=== PATIENT | female | born 1965 | race Caucasian/White ===

== ENCOUNTER → 2017-10-28 | Outpatient (CLI) | payer BC ==
[~2017-10-28] MED LIST: CITA10TA8 PO; FEXO1TAB45 PO; METO25TA3 PO; MULTTAB58 PO; OMEP40CA PO
[2017-10-28 10:29] LABS: HEMOGLOBIN A1C 5.3 % (4.5-5.6)
[2017-10-28 10:46] LABS: ALBUMIN 3.7 gm/dl (3.4-5.0); ALT/SGPT 32 U/L (12-78); AST/SGOT 21 U/L (15-37); BLOOD UREA NITROGEN 11 mg/dl (7-18); CARBON DIOXIDE 30 mmol/L (21-32); CREATININE 0.66 mg/dl (0.60-1.20); GLUCOSE 89 mg/dl (70-99); POTASSIUM 3.6 mmol/L (3.5-5.1); SODIUM 139 mmol/L (136-145)
[2017-10-28 10:47] LABS: ALKALINE PHOSPHATASE 88 U/L (45-117); CHOLESTEROL 225 mg/dl (0-200); LDL CHOLESTEROL CALCULATED 132 mg/dl; TOTAL PROTEIN 7.3 gm/dl (6.4-8.2)
== END | disposition home or self-care (01) ==
LOC: C.LAB 09:08
PROVIDERS: ATTEND Nurse Practitioner Family
DX: Z13.220 Encounter for screening for lipoid disorders (principal); I10 Essential (primary) hypertension; E16.2 Hypoglycemia, unspecified

== ENCOUNTER 2018-08-16 13:44 | Observation (INO) ==
[2018-08-16] MEDS ORDERED: LORazepam 1 MG TAB PO STA (14:28)
[2018-08-16 15:07] LABS: Basophils # (auto) 0.02 K/uL (0-0.2); Basophils % (auto) 0.2 %; Hematocrit (blood only) 43.9 % (37-47); Immature Granulocytes # (auto) 0.04 K/uL (0.00-0.02); Immature Granulocytes % (auto) 0.4 %; Lymphocytes # (auto) 2.02 K/uL (1.2-3.4); Lymphocytes % (auto) 19.3 %; Mean Corpuscular Hgb Conc 34.2 g/dL (32-36); Mean Corpuscular Volume 99.3 fL (80-100); Mean Platelet Volume 9.5 fL (7.4-10.4); Monocytes # (auto) 0.91 K/uL (0.11-0.59); Monocytes % (auto) 8.7 %; Neutrophils # (auto) 7.46 K/uL (1.4-6.5); Neutrophils % (auto) 71.4 %; Platelet Count 220 K/uL (130-400); RDW Coefficient of Variation 12.9 % (11.5-14.5); RDW Standard Deviation 46.8 fL (36.4-46.3); Red Blood Count 4.42 M/uL (4.2-5.4); White Blood Count 10.45 K/uL (4.8-10.8)
[2018-08-16 15:26] LABS: Albumin Level 3.9 gm/dl (3.4-5.0); BUN Creatinine Ratio 4.3 (10-20); Calcium 9.3 mg/dl (8.5-10.1); Creatinine Clr Calc Pharmacy 25.9 ml/min; Est GFR (African American) 27.5; Est GFR (Non-African American) 23.7; Potassium 2.9 mmol/L (3.5-5.1)
[2018-08-16] MEDS ORDERED: SODIUM CHLORIDE 0.9% 1000ML 1,000 ML IV ONE ×2 (15:31→15:32)
--- NOTE | 2018-08-16 15:31 | XRay Report ---
XR hip RT 2-3V w pelvis CLINICAL HISTORY: s/p fall. Right hip pain. COMPARISON STUDY: None. FINDINGS: No fracture or dislocation within the pelvis or hips. The sacrum is intact. Soft tissues ar e unremarkable. Cartilage spaces are maintained for age. IMPRESSION: No fracture or dislocation within the pelvis or hips. Electronically signed by: uJan A Dickerson M.D. 08/16/2018 3:30 PM
[2018-08-16] MEDS ORDERED: POTASSIUM CHLORIDE 20 MEQ/15 ML UDC PO STA (15:32)
[2018-08-16 15:37] LABS: Albumin Globulin Ratio 0.9 (0.9-2); Bilirubin,Total 0.2 mg/dl (0.1-1); Globulin 4.2 gm/dl (2.5-4.0); Total Protein 8.1 gm/dl (6.4-8.2)
[2018-08-16 15:44] LABS: Magnesium 2.4 mg/dl (1.8-2.4)
[2018-08-16 15:47] LABS: Acetaminophen < 2 ug/ml (10-30); Salicylate 2.2 mg/dl (2.8-20)
[2018-08-16 16:37] LABS: Appearance Urine Turbid (Clear); Bacteria Urine Automated 4+ (Negative); Bilirubin Urine Negative (Negative); Color Urine Yellow; Epithelial Cell Urine Auto >30 /lpf (0-5); Glucose Urine UA Negative (Negative); Ketones Urine Negative (Negative); Leukocyte Esterase Urine 3+ (Negative); Nitrite Urine Positive (Negative); Protein Urine 1+ (Negative); Specific Gravity Urine 1.011 (1.000-1.030); Urobilinogen Urine Negative (Negative); WBC Urine Automated >30 /hpf (0-5); pH Urine 6.5 (4.5-7.5)
[2018-08-16] MEDS ORDERED: FOLIC ACID 1 MG in SYRINGE 9.8 ML IV STA (17:07)
[2018-08-16] MEDS ORDERED: THIAMINE HCL 100 MG TAB PO STA (17:07)
[2018-08-16] MEDS ORDERED: MULTIVITAMIN TAB PO STA (17:07)
[2018-08-16 17:09] LABS: Amphetamines+Metham, Urine Neg (Neg); Barbiturates, Urine Neg (Neg); Benzodiazepine, Urine Neg (Neg); Cocaine, Urine Neg (Neg); MDMA (Ecstacy), Urine Neg (Neg); Methadone, Urine Neg (Neg); Opiate, Urine Neg (Neg); Phencyclidine, Urine Neg (Neg)
[2018-08-16] MEDS ORDERED: ONDANSETRON INJ 2 MG/ML 2 ML VIAL ONE (17:47)
[2018-08-16] MEDS ORDERED: cephALEXin 250 MG CAP PO ONE (18:19)
[2018-08-16] MEDS ORDERED: NICOTINE 14 MG/24 HR PATCH TD STA (21:13)
[2018-08-16] MEDS ORDERED: LORazepam 1 MG TAB SL STA (21:13)
--- NOTE | 2018-08-16 21:56 | Emergency Department Note ---
Entered by Tom Lawrence acting as a scribe for Uriah Moses MD History of Present Illness General Chief complaint: Mental Health Evaluation Stated complaint: MENTAL HEALTH/ETOH Time Seen by Provider: 08/16/18 14:10 Source: patient and friends History of Present Illness Onset (ago): unknown (reportedly hasn't eaten or drank for past 3-4 days) Location: head (psychiatric) Pain Consistency: + other (worsening) Quality: + other ("feeling like a failure") Associated symptoms: no nausea/vomiting and no other (pain) The patient is a 53 year old white female with a history of alcoholism who presents to the Emergency Room with complaints of feeling like a failure. The psychiatric case repairer states that the patient has reportedly stayed in bed for the past 6 days, and her friend checked her today and felt she should be brought to the ER. The patients friend at bedside states that the patient last ate or drank 3 to 4 days ago. She states that she currently feels anxious and regularly takes anxiety medication. She notes that she acutely feels like a failure, worsening and not getting better. She denies pain, nausea, vomiting, SI, HI, or hallucinations. She states that she does not use tobacco and has not drunk alcohol. When asked if she has used any drugs she states I cant even tell you. Home Medications Home Medications Medication Instructions Recorded Confirmed Type bupropion HCl 150 mg PO DAILY 08/16/18 08/16/18 History cephalexin [Keflex] 250 mg PO BID 5 Days #9 cap 08/16/18 Rx cephalexin [Keflex] 500 mg PO BID 5 Days #9 cap 08/16/18 Rx metoprolol tartrate 25 mg PO BID 08/16/18 08/16/18 History omeprazole 40 mg PO DAILY 08/16/18 08/16/18 History Allergies Allergy/AdvReac Type Severity Reaction Status Date / Time No Known Allergies Allergy Verified 02/20/16 20:37 Past Med/Surg History Medical History Alcoholism Family History Other Family history non-contributory Social History Feels Safe at Home: Yes Smoking Status: Current every day smoker Tobacco Type: cigarettes Review of Systems See HPI for pertinent positives & negatives. and A total of 10 systems reviewed and were otherwise negative Physical Exam Vital Signs Vital Signs - 24 hr 08/16/18 13:50 08/16/18 17:06 08/16/18 21:33 Temperature 36.4 C L Temperature Source Oral Sepsis Recent Fever Within 48 Hours No Sepsis New/Unexplained Change in Mental Status No Sepsis Action Taken by Nursing No Action Required Pulse Rate 102 H Pulse Rate [Right Finger] 89 104 H Pulse Rhythm Regular Pulse Rhythm [Right Finger] Regular Pulse Strength [Right Finger] Normal Respiratory Rate 20 20 20 Respiratory Effort / Characteristics Non-Labored Spontaneous Non-Labored Spontaneous Respiratory Depth Normal Normal Respiratory Pattern Regular Regular Blood Pressure 151/81 H Blood Pressure [Right Arm] 146/64 H 133/85 Blood Pressure Mean 104 Blood Pressure Mean [Right Arm] 91 101 Blood Pressure Position [Right Arm] Lying Pulse Oximetry 98 99 97 Oxygen Delivery Method Room Air Room Air Room Air GENERAL: tearful and anxious-appearing EYE EXAM: Normal conjunctiva. PERRL, no anisocoria and EOM's grossly intact w/o pain. OROPHARYNX: No exudate, posterior pharynx is clear, no tonsillar/uvular deviation or swelling. NECK: Supple, no nuchal rigidity, no adenopathy, non-tender. No signs of meningismus. LUNGS: Clear to auscultation bilaterally. Normal chest wall mechanics. HEART: Tachycardic and regular, no MRG. ABDOMEN: Abdomen soft, non-tender, normo-active bowel sounds, no masses, no rebound or guarding. BACK: No CVA TTP. SKIN: No rashes and no bruising. UPPER EXTREMITIES: Upper extremities are grossly normal. LOWER EXTREMITIES: No pitting edema. No calf pain NEURO EXAM: Cranial nerves II-XII grossly intact, normal speech, 5/5 strength in b/l upper and lower extremities, moves all 4 extremities without issue on command PSYCH: No SI, HI or AVH Course 1423: Past medical records reviewed. The patient was evaluated in room A6, and a complete history and physical examination were performed. 1457: The patient fell out of her bed onto the right side and is now reporting hip pain. An x-ray of the hip will be obtained. 2022: I spoke to the patient. She now states that she will talk to Jarrell, the psychiatric case repairer. 2137: Jarrell states that the patient has agreed to possible rehab. 2229: I signed the patient out to Dr. Russell. 2244: I briefly spoke w/ hospitalist ( Dr. Pittman, [facility]ist) given patient's acute change in kidney dysfucntion. Given the improvement, likely related to alcohol abuse and decreased PO intake. If not accepted to rehab, he will admit. 2248: I discussed POC w/ Dr. Russell and psych case repairer, pending acceptance to rehab. Administered Medications Discontinued Medications Cephalexin HCl (Keflex) 500 mg PO NOW ONE Stop: 08/16/18 18:20 Last Admin: 08/16/18 18:33 Dose: 500 mg Sodium Chloride (Nss 1000ml) 1,000 mls @ 999 mls/hr IV .Q1H1M ONE Stop: 08/16/18 16:31 Last Infusion: 08/16/18 17:45 Dose: 0 mls/hr Admin: 08/16/18 16:29 Dose: 999 mls/hr Sodium Chloride (Nss 1000ml) 1,000 mls @ 999 mls/hr IV .Q1H1M ONE Stop: 08/16/18 16:32 Last Infusion: 08/16/18 17:45 Dose: 0 mls/hr Admin: 08/16/18 16:29 Dose: 999 mls/hr Folic Acid 1 mg/ Syringe 10 mls @ 5 mls/min IV ONE STA Stop: 08/16/18 17:08 Last Admin: 08/16/18 17:35 Dose: 5 mls/min Lorazepam (Ativan) 1 mg PO NOW STA Stop: 08/16/18 14:29 Last Admin: 08/16/18 14:38 Dose: 1 mg Lorazepam (Ativan) 1 mg SL NOW STA Stop: 08/16/18 21:14 Last Admin: 08/16/18 21:21 Dose: 1 mg Multivitamins (Multivitamin) 1 tab PO ONE STA Stop: 08/16/18 17:08 Last Admin: 08/16/18 17:35 Dose: 1 tab Ondansetron HCl (Zofran) Confirm Administered Dose 4 mg .ROUTE .STK-MED ONE Stop: 08/16/18 17:48 Last Admin: 08/16/18 17:57 Dose: 4 mg Potassium Chloride (Neida Ciel Elix) 40 meq PO NOW STA Stop: 08/16/18 15:33 Last Admin: 08/16/18 17:35 Dose: 30 meq Thiamine HCl (Vitamin B-1) 100 mg PO ONE STA Stop: 08/16/18 17:08 Last Admin: 08/16/18 17:35 Dose: 100 mg Medical Decision Making Medical Records Attestation: I reviewed the patient's medical records. Home Medications Current Medication List: was personally reviewed by me Laboratory Data Attestation: I reviewed the patient's lab results. Result diagrams: 08/16/18 14:49 08/16/18 22:06 Lab Results 08/16/18 08/16/18 08/16/18 Range/Units 14:49 14:49 14:49 WBC 10.45 (4.8-10.8) K/uL RBC 4.42 (4.2-5.4) M/uL Hgb 15.0 (12.0-16.0) g/dL Hct 43.9 (37-47) % MCV 99.3 (80-100) fL MCH 33.9 (25-34) pg MCHC 34.2 (32-36) g/dL RDW Std Deviation 46.8 H (36.4-46.3) fL RDW Coeff of Ahsan 12.9 (11.5-14.5) % Plt Count 220 (130-400) K/uL MPV 9.5 (7.4-10.4) fL Immature Gran % (Auto) 0.4 % Neut % (Auto) 71.4 % Lymph % (Auto) 19.3 % [place] % (Auto) 8.7 % Eos % (Auto) 0.0 % Baso % (Auto) 0.2 % Immature Gran # (Auto) 0.04 H (0.00-0.02) K/uL Neut # (Auto) 7.46 H (1.4-6.5) K/uL Lymph # (Auto) 2.02 (1.2-3.4) K/uL [place] # (Auto) 0.91 H (0.11-0.59) K/uL Eos # (Auto) 0.00 (0-0.5) K/uL Baso # (Auto) 0.02 (0-0.2) K/uL Sodium 134 L (136-145) mmol/L Potassium 2.9 L (3.5-5.1) mmol/L Chloride 95 L (98-107) mmol/L Carbon Dioxide 30 (21-32) mmol/L Anion Gap 9.0 (3-11) BUN 10 (7-18) mg/dl Creatinine 2.31 H (0.6-1.2) mg/dl Est Cr Clr Drug Dosing 25.9 ml/min Est GFR ( Amer) 27.5 Est GFR (Non-Af Amer) 23.7 BUN/Creatinine Ratio 4.3 L (10-20) Glucose 163 H (70-99) mg/dl Calcium 9.3 (8.5-10.1) mg/dl Magnesium 2.4 (1.8-2.4) mg/dl Total Bilirubin 0.2 (0.1-1) mg/dl AST 61 H (15-37) U/L ALT 51 (12-78) U/L Alkaline Phosphatase 100 (45-117) U/L Total Protein 8.1 (6.4-8.2) gm/dl Albumin 3.9 (3.4-5.0) gm/dl Globulin 4.2 H (2.5-4.0) gm/dl Albumin/Globulin Ratio 0.9 (0.9-2) TSH 0.289 L (0.300-4.500) uIu/ml Urine Color Urine Appearance (Clear) Urine pH (4.5-7.5) Ur Specific [place] (1.000-1.030) Urine Protein (Negative) Urine Glucose (UA) (Negative) Urine Ketones (Negative) Urine Blood (Negative) Urine Nitrite (Negative) Urine Bilirubin (Negative) Urine Urobilinogen (Negative) Ur Leukocyte Esterase (Negative) Urine WBC (Auto) (0-5) /hpf Urine RBC (Auto) (0-4) /hpf U Hyaline Cast (Auto) (0-5) /lpf U Epithel Cells (Auto) (0-5) /lpf Urine Bacteria (Auto) (Negative) Salicylates 2.2 L (2.8-20) mg/dl Urine Opiates Screen (Neg) Ur Methadone, Qual (Neg) Acetaminophen < 2 L (10-30) ug/ml Urine Barbiturates (Neg) Ur Phencyclidine (PCP) (Neg) U Amphetamin/Meth Scrn (Neg) MDMA (Ecstasy) Screen (Neg) U Benzodiazepines Scrn (Neg) Ur Cocaine Metabolite (Neg) U Marijuana (THC) Screen (Neg) Ethyl Alcohol mg/dL (0-3) mg/dl 08/16/18 08/16/18 08/16/18 Range/Units 14:49 16:25 16:25 WBC (4.8-10.8) K/uL RBC (4.2-5.4) M/uL Hgb (12.0-16.0) g/dL Hct (37-47) % MCV (80-100) fL MCH (25-34) pg MCHC (32-36) g/dL RDW Std Deviation (36.4-46.3) fL RDW Coeff of Ahsan (11.5-14.5) % Plt Count (130-400) K/uL MPV (7.4-10.4) fL Immature Gran % (Auto) % Neut % (Auto) % Lymph % (Auto) % [place] % (Auto) % Eos % (Auto) % Baso % (Auto) % Immature Gran # (Auto) (0.00-0.02) K/uL Neut # (Auto) (1.4-6.5) K/uL Lymph # (Auto) (1.2-3.4) K/uL [place] # (Auto) (0.11-0.59) K/uL Eos # (Auto) (0-0.5) K/uL Baso # (Auto) (0-0.2) K/uL Sodium (136-145) mmol/L Potassium (3.5-5.1) mmol/L Chloride (98-107) mmol/L Carbon Dioxide (21-32) mmol/L Anion Gap (3-11) BUN (7-18) mg/dl Creatinine (0.6-1.2) mg/dl Est Cr Clr Drug Dosing ml/min Est GFR ( Amer) Est GFR (Non-Af Amer) BUN/Creatinine Ratio (10-20) Glucose (70-99) mg/dl Calcium (8.5-10.1) mg/dl Magnesium (1.8-2.4) mg/dl Total Bilirubin (0.1-1) mg/dl AST (15-37) U/L ALT (12-78) U/L Alkaline Phosphatase (45-117) U/L Total Protein (6.4-8.2) gm/dl Albumin (3.4-5.0) gm/dl Globulin (2.5-4.0) gm/dl Albumin/Globulin Ratio (0.9-2) TSH (0.300-4.500) uIu/ml Urine Color Yellow Urine Appearance Turbid H (Clear) Urine pH 6.5 (4.5-7.5) Ur Specific [place] 1.011 (1.000-1.030) Urine Protein 1+ H (Negative) Urine Glucose (UA) Negative (Negative) Urine Ketones Negative (Negative) Urine Blood 1+ H (Negative) Urine Nitrite Positive H (Negative) Urine Bilirubin Negative (Negative) Urine Urobilinogen Negative (Negative) Ur Leukocyte Esterase 3+ H (Negative) Urine WBC (Auto) >30 H (0-5) /hpf Urine RBC (Auto) 10-30 H (0-4) /hpf U Hyaline Cast (Auto) 1-5 (0-5) /lpf U Epithel Cells (Auto) >30 H (0-5) /lpf Urine Bacteria (Auto) 4+ H (Negative) Salicylates (2.8-20) mg/dl Urine Opiates Screen Neg (Neg) Ur Methadone, Qual Neg (Neg) Acetaminophen (10-30) ug/ml Urine Barbiturates Neg (Neg) Ur Phencyclidine (PCP) Neg (Neg) U Amphetamin/Meth Scrn Neg (Neg) MDMA (Ecstasy) Screen Neg (Neg) U Benzodiazepines Scrn Neg (Neg) Ur Cocaine Metabolite Neg (Neg) U Marijuana (THC) Screen Neg (Neg) Ethyl Alcohol mg/dL < 3.0 (0-3) mg/dl 08/16/18 Range/Units 22:06 WBC (4.8-10.8) K/uL RBC (4.2-5.4) M/uL Hgb (12.0-16.0) g/dL Hct (37-47) % MCV (80-100) fL MCH (25-34) pg MCHC (32-36) g/dL RDW Std Deviation (36.4-46.3) fL RDW Coeff of Ahsan (11.5-14.5) % Plt Count (130-400) K/uL MPV (7.4-10.4) fL Immature Gran % (Auto) % Neut % (Auto) % Lymph % (Auto) % [place] % (Auto) % Eos % (Auto) % Baso % (Auto) % Immature Gran # (Auto) (0.00-0.02) K/uL Neut # (Auto) (1.4-6.5) K/uL Lymph # (Auto) (1.2-3.4) K/uL [place] # (Auto) (0.11-0.59) K/uL Eos # (Auto) (0-0.5) K/uL Baso # (Auto) (0-0.2) K/uL Sodium 138 (136-145) mmol/L Potassium 3.2 L (3.5-5.1) mmol/L Chloride 102 (98-107) mmol/L Carbon Dioxide 29 (21-32) mmol/L Anion Gap 7.0 (3-11) BUN 6 L (7-18) mg/dl Creatinine 2.07 H (0.6-1.2) mg/dl Est Cr Clr Drug Dosing 28.9 ml/min Est GFR ( Amer) 31.3 Est GFR (Non-Af Amer) 27.0 BUN/Creatinine Ratio 2.8 L (10-20) Glucose 103 H (70-99) mg/dl Calcium 9.1 (8.5-10.1) mg/dl Magnesium (1.8-2.4) mg/dl Total Bilirubin (0.1-1) mg/dl AST (15-37) U/L ALT (12-78) U/L Alkaline Phosphatase (45-117) U/L Total Protein (6.4-8.2) gm/dl Albumin (3.4-5.0) gm/dl Globulin (2.5-4.0) gm/dl Albumin/Globulin Ratio (0.9-2) TSH (0.300-4.500) uIu/ml Urine Color Urine Appearance (Clear) Urine pH (4.5-7.5) Ur Specific [place] (1.000-1.030) Urine Protein (Negative) Urine Glucose (UA) (Negative) Urine Ketones (Negative) Urine Blood (Negative) Urine Nitrite (Negative) Urine Bilirubin (Negative) Urine Urobilinogen (Negative) Ur Leukocyte Esterase (Negative) Urine WBC (Auto) (0-5) /hpf Urine RBC (Auto) (0-4) /hpf U Hyaline Cast (Auto) (0-5) /lpf U Epithel Cells (Auto) (0-5) /lpf Urine Bacteria (Auto) (Negative) Salicylates (2.8-20) mg/dl Urine Opiates Screen (Neg) Ur Methadone, Qual (Neg) Acetaminophen (10-30) ug/ml Urine Barbiturates (Neg) Ur Phencyclidine (PCP) (Neg) U Amphetamin/Meth Scrn (Neg) MDMA (Ecstasy) Screen (Neg) U Benzodiazepines Scrn (Neg) Ur Cocaine Metabolite (Neg) U Marijuana (THC) Screen (Neg) Ethyl Alcohol mg/dL (0-3) mg/dl Imaging Data Radiologist's Impression: Radiology results as stated below per my review and the radiologist's interpretation: XR hip RT 2-3V w pelvis CLINICAL HISTORY: s/p fall. Right hip pain. COMPARISON STUDY: None. FINDINGS: No fracture or dislocation within the pelvis or hips. The sacrum is intact. Soft tissues are unremarkable. Cartilage spaces are maintained for age. IMPRESSION: No fracture or dislocation within the pelvis or hips. Electronically signed by: Juan A Dickerson M.D. 08/16/2018 3:30 PM ECG Data Attestation: I personally reviewed and interpreted this ECG as follows: Indication: weakness Rate (beats per minute): 103 Rhythm: sinus tachycardia Findings: + other (normal intervals), + Q waves (lead III) and + left axis deviation Blood Pressure Blood Pressure Findings: Elevated blood pressure Blood Pressure Disposition: elevated BP felt to be situational MDM Narrative Prior records/ancillary studies reviewed. Triage nursing notes reviewed. The patient is a 53 year old white female with a history of alcoholism who presents to the Emergency Room with complaints of feeling like a failure. Differential diagnosis: Etiologies such as mood disorder, infection, hypoglycemia, electrolyte abnormalities, cardiac sources, intracerebral event, toxicologic, neurologic, as well as others were entertained. Patient was seen and evaluated the bedside. The patient is acutely anxious and states that she feels like a failure.. Patient denies any history of SI, HI, or AVH. The patient does have reported history of binge drinking and alcohol use. The patient did have a slight fall after her examination to her right side. The patient did not strike her head. The patient did have some mild hip pain. Plain films were ordered which were negative. Patient did have blood work completed along with urinalysis urine drug screen. The patient does have an elevation in creatinine. This is an acute change. This is likely related to the patient's lack of p.o. intake as well as drinking the prior week at a wedding. The patient states that she is not been eating or drinking anything for over the last 3-4 days. Patient was given IV fluids as well as p.o. fluids. The patient did have some mild hypokalemia which was repleted. The patient did have likely UTI which was treated with by mouth antibiotics. Patient's creatinine did show mild improvement. Patient's potassium and sodium also improved. I did briefly speak with the hospitalist who stated that if the patient can go to rehab that the patient's kidney dysfunction is likely related to the patient's alcohol abuse. He stated that if the patient would not be accepted due to mild kidney dysfunction he would be happy to admit. I did convey this to the psych case repairer as well as to the evening physician Dr. Russell and the patient was pending acceptance to rehab versus possible admission to medicine. Impression & Plan DAVE (acute kidney injury), Hypokalemia, Urinary tract infection, Encounter for smoking cessation counseling Discharge Plan Visit Data Chief Complaint: Mental Health Evaluation Stated Complaint: MENTAL HEALTH/ETOH ED Provider: Uriah Moses Discharge Problem: DAVE (acute kidney injury), Hypokalemia, Urinary tract infection, Encounter for smoking cessation counseling Patient Disposition: Still a Patient Condition: Good Discharge Instructions Romero/Other Patient Handouts: Hypokalemia Dc, ED UTI Cystitis Female Activity Restrictions/Additional Instructions: Please return to the emergency department if you have worsening or recurrent symptoms not amenable to at-home treatment. Please call for a follow-up appointment with her primary care physician. Please take your medications as prescribed. If you have other concerns and/or complaints please feel free to also call your primary care physician's office or return the ED for further evaluation, management, and treatment. Take your medications as prescribed. If taking an antibiotic consider taking a probiotic and/or eating yogurt, but at the least, please take with food as it can cause upset stomach. Please avoid NSAIDs. You do have some kidney dysfunction which is likely related to not eating or drinking as much as well as possibly related to alcohol abuse. You need to follow-up with your PCP within 1 week of discharge from rehab as well as a possible follow-up with a kidney doctor after seeing her PCP. You may also need repeat blood work to evaluate your kidney function. Please abstain from alcohol. Please return to the emergency department for further evaluation and treatment if you are unable to urinate. You have been examined and treated today on an emergency basis only. This is not a substitute for, or an effort to provide, complete comprehensive medical care. It is impossible to recognize and treat all injuries or illnesses in a single emergency department visit. It is therefore important that you follow up closely with [facility], your PCP, and/or your specialist(s). Call as soon as possible for an appointment. Thank you for your time and consideration. I look forward to speaking with you again soon. Please don't hesitate to call us if you have any questions. Forms Stand Alone Forms: My [facility] Prescriptions Prescriptions: New cephalexin [Keflex] 500 mg capsule 500 mg PO BID 5 Days Qty: 9 RF: 0 cephalexin [Keflex] 250 mg capsule 250 mg PO BID 5 Days Qty: 9 RF: 0 No Action omeprazole 40 mg capsule,delayed release(DR/EC) 40 mg PO DAILY RF: 0 bupropion HCl 150 mg tablet extended release 24 hr 150 mg PO DAILY RF: 0 metoprolol tartrate 25 mg tablet 25 mg PO BID RF: 0 Referrals Referrals: Ricky Marley III, CRNP [Primary Care Provider] - The scribe's documentation has been prepared under my direction and personally reviewed by me in its entirety. I confirm that the note above accurately reflects all work, treatment, procedures, and medical decision making performed by me.
[2018-08-16 22:33] LABS: BUN Creatinine Ratio 2.8 (10-20); Calcium 9.1 mg/dl (8.5-10.1); Creatinine Clr Calc Pharmacy 28.9 ml/min; Est GFR (African American) 31.3; Potassium 3.2 mmol/L (3.5-5.1)
[2018-08-17] MEDS ORDERED: LORazepam 1 MG TAB SL STA (00:09)
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
[2018-08-17] MEDS ORDERED: POLYETHYLENE (MIRALAX) 17 GM PACK PO PRN (03:36)
[2018-08-17] MEDS ORDERED: MAGNESIUM HYDROXIDE SUSP 30 ML UDC PO PRN (03:36)
[2018-08-17] MEDS ORDERED: POTASSIUM CHLORIDE 20 MEQ TABCR PO STA (03:36)
[2018-08-17] MEDS ORDERED: ONDANSETRON INJ 2 MG/ML 2 ML VIAL IV PRN (03:36)
[2018-08-17] MEDS ORDERED: ALUMINUM/MAGNESIUM SUSP 30 ML UDC PO PRN (03:36)
[2018-08-17] MEDS ORDERED: ACETAMINOPHEN 325 MG TAB PO PRN (03:36)
[2018-08-17] MEDS ORDERED: cefTRIAXone SODIUM 2,000 MG in DEXTROSE 5% 50 ML IV SCH (04:00)
[2018-08-17] MEDS: SODIUM CHLORIDE 0.9% 1000ML 1,000 ML IV SCH ×2 (04:20→14:50)
[2018-08-17] MEDS ORDERED: LORazepam 1 MG TAB PO PRN (05:10)
[2018-08-17 05:57] LABS: Albumin Level 3.4 gm/dl (3.4-5.0); Bilirubin Direct 0.1 mg/dl (0-0.2); Bilirubin,Total 0.2 mg/dl (0.1-1); T4 Free Thyroxine 0.97 ng/dl (0.8-1.6); Total Protein 7.3 gm/dl (6.4-8.2)
--- NOTE | 2018-08-17 07:25 | Ultrasound Report ---
US renal/blad retro comp CLINICAL HISTORY: 53 years-old Female presenting with acute kidney injury, UTI. TECHNIQUE: Real-time grayscale and limited color Doppler ultrasound imaging of the kidneys and bladde r was performed. COMPARISON: 10/08/2013. FINDINGS: Right kidney: Normal echogenicity of renal parenchyma. Right kidney measures 11.4 cm. Minimal pelviec tasis. No hydronephrosis. No convincing evidence of calculus or mass. Left kidney: Normal echogenicity of renal parenchyma. Left kidney measures 11.0 cm. No hydronephrosis . No convincing evidence of calculus or mass. Bladder: Mild circumferential wall thickening suggested. Mobile internal debris. Bilateral ureteral j ets present. Other: None. IMPRESSION: 1. Circumferential bladder wall thickening with internal debris could be consistent with cystitis, l ikely infectious. Correlate with urinalysis. 2. No hydronephrosis. Electronically signed by: Nathan Villarreal M.D. 08/17/2018 7:24 AM
[2018-08-17] MEDS ORDERED: PANTOprazole 40 MG TAB PO SCH (09:00)
[2018-08-17] MEDS ORDERED: METOPROLOL TARTRATE 25 MG TAB PO SCH (09:00)
[2018-08-17] MEDS ORDERED: NICOTINE 7 MG/24 HR TDSY TD SCH (09:00)
[2018-08-17] MEDS ORDERED: BuPROPion XL 150 MG TABCR PO SCH (09:00)
--- NOTE | 2018-08-17 09:16 | Psychiatric Consultation ---
Date of Consultation August 17, 2018 Impression / Recommendations Impression 53-year-old female admitted medically after a 4-day ETOH binge and was unable to care for herself due to level of alcohol intoxication. Pt verbalized willingness for inpatient D&A rehabilitation and referrals were made. Plan for transfer once medically cleared. Although cannot rule out an underlying mood/ anxiety disorder, patient's symptoms of low mood, difficulty sleeping, and decreased appetite reportedly exists within the context of her alcohol use. Otherwise, patient reports feeling "normal" with regard to mood and anxiety. Pt prescribed bupropion XL 150mg which was initiated for smoking cessation. Pt denies history of seizure disorder or withdrawal seizures - regardless, was counselled on bupropion's ability to lower seizure threshold. Seems appropriate to continue for now. Pt denies SI/HI, SIB, A/V hallucinations and appears psychiatrically appropriate for discharge to inpatient D&A rehabilitation once medically cleared. No criteria to begin psychotropic medications, as symptoms of concern reportedly only occur within the context of substance abuse. Dr. Clemencia Quan was directly involved in review and discussion of the patient' s case and participated in medical decision making regarding treatment recommendations. (1) Alcohol abuse: 08/17 - Transfer to inpatient D&A rehabilitation, bed held at [facility] - pt willing for treatment - Continue bupropion XL 150mg as beneficial for smoking cessation - Psychiatrically stable for transfer to inpatient rehabilitation Inventory Assets Strengths: Willingness for treatment, good support system Needs: to abstain from ETOH use, development of healthy coping strategies Risk Factors Assessment Male: No : Yes Do You Have Access To A Gun?: No Health Problems: No Mental Health Diagnoses: No Substance Use Disorders: Yes Previous Attempt: No Family History of Suicide: No Previous Psychiatric Hospitalization: No Hopelessness: No Smoker: Yes Protective Factors Assessment : No Responsible for Young Children: Yes Employed: Yes Stable Relationships: Yes Supportive Family: Yes CPT Code 21846 Psych History Identifying Data 53-year-old female with history of alcoholism admitted medically on following 4-day alcohol binge. Psychiatric consultation requested to evaluate patient for depression, anxiety, and alcohol abuse. Chief Complaint "Drinking, depression, anxiety...feeling really high, then feeling really low...that's why I'm here". History of Present Illness Kay Al is a 53-year-old female with PMH of HTN, GERD, and alcohol abuse. Pt was admitted medically on 08/17/18 after a 4-day binge on alcohol. Pt is interviewed with presence of a friend, Michael, with patient's permission. Pt reports a history of alcohol abuse with at least 2 previous inpatient D&A rehab stays. Pt states most recently she was at "[facility]" in [place] in 2017 and completed 28 days of treatment. Pt followed up at [facility] for outpatient D& A treatment, then stopped treatment recently due to cost and belief that she had been doing better. Pt states she has been a "social drinker" since that time, but admits that things have been rough recently. She states she and her significant other went to [place] for several days. Pt reports consuming 3-4 drinks daily while on vacation. Once home, the patient celebrated Thanksgiving with her family in [place] and denies consuming alcohol during that time. After returning home, the patient states she and her daughter had some disagreements and patient began drinking again. Pt reports a 4-day binge, but is unable to give clear report of average intake during those days. Initially patient was hesitant to report drinking at all, then announced having 2 drinks per day, then finally admitting that a handle of vodka was lasting her 1.5 days. Pt states situationally, she has been having some difficulty recently. She reports a divorce 2-years ago after discovering her of 20+ years had been unfaithful. She has a 17-year-old daughter whom she lives with, with whom she has had disagreements. Pt states, "I came back from the holiday and my daughter just left me, I just thought 'If I'm going to be treated like this, I can go back to [place]'." Pt's friend interjects to remind patient, "You know she left because when she found you, you were in a pretty rough place" - to which patient verbalizes understanding and remorse. Pt states states over the last 4 days she has been unable to care for herself, experienced limited nutritional intake, and was not attending to ADLs. Aside from the context of this recent binge, patient denies symptoms of altered sleep, appetite, or energy level. Pt states prior the her alcohol use, her mood was "normal I'd say ". She denies significant anxiety symptoms. Pt states she was put on bupropion while at [facility] for smoking cessation. This has provided some assistance with cutting back on use, and patient denies any significant changes in mood or anxiety. Pt denies SI/HI, SIB, A/V hallucinations, and other acute psychiatric concerns. At this time, patient reports willingness for inpatient D&A rehabilitation and is hopeful for medical discharge and transfer this morning. Past Psychiatric History Previous Psych History: Denies previous inpatient mental health treatment. History of bupropion, but with intent for smoking cessation. Pt reports at least 2 stays for inpatient D&A treatment. Most recently she had been treated at [facility] for ongoing D&A therapy sessions. Current Psychiatric Diagnosis: Alcohol abuse Outpatient Services: None currently Most recently seen for therapy sessions with "Domingo" at [facility] Previous Psych Admissions: None Do You Have Access To A Gun?: No History of Previous Suicide Attempt: No Past Medication Trials: Bupropion XL - smoking cessation Allergies Allergy/AdvReac Type Severity Reaction Status Date / Time No Known Allergies Allergy Verified 02/20/16 20:37 Home Medications Home Medications Medication Instructions Recorded Confirmed Type bupropion HCl 150 mg PO DAILY 08/16/18 08/16/18 History cephalexin [Keflex] 250 mg PO BID 5 Days #9 cap 08/16/18 Rx cephalexin [Keflex] 500 mg PO BID 5 Days #9 cap 08/16/18 Rx metoprolol tartrate 25 mg PO BID 08/16/18 08/16/18 History omeprazole 40 mg PO DAILY 08/16/18 08/16/18 History Family History Mother - depression; father - alcoholism; maternal side - alcoholism. No family history of suicide attempts Substance Abuse History Reports significant history with alcohol abuse with intermittent D&A treatment. Admits to smoking 4 cigarettes per day since "forever" - reports herself to be a "closet smoker". Pt denies use of illicit substances. Admits to caffeine consumption of 3 cups of coffee daily. Personal History Living Arrangements: Home (with 17-year-old daughter) Born In: [place] Highest Grade Completed: Graduate School (Masters + 30) Employment Status: Internet Network Specialist Employed Marital Status: Beliefs That Will Affect Care: None History of Legal Problems: None reported Patient History Medical History GERD (gastroesophageal reflux disease) Hypertension Alcoholism Family History Other Family history non-contributory Social History Current Living Situation: Family Current Living Situation Comment: WITH DAUGHTER Feels Safe at Home: Yes Safety Concerns: Feels Safe At This Time Smoking Status: Current every day smoker Tobacco Type: cigarettes Cigarettes per Day: 4 cigarettes per day; Patient states "I'm a closet smoker" Hx Alcohol Use: Yes Alcohol type: beer, wine and hard liquor Alcohol Intake Frequency: 3 or more drinks per day Hx Substance Use: No Beliefs That Will Affect Care: None Preferred Language: Bhutanese Communication Ability: Effective Fuel Tank Sealer And Tester Required: No Physical Exam Psychiatric Orientation: alert, oriented x 3 and cooperative Apperance: + disheveled (hair in messy-bun, room malodorous) and appeared stated age Eye Contact: good eye contact Motor Behavior: no abnormal motor movements (observed while sitting upright on bed) Speech: normal rate/rhythm/volume of speech Affect: euthymic affect Mood: no depressed mood and no anxious mood Thought Process: goal directed thought process, linear/logical thought process and clear/coherent thought process Thought Content: reality based without delusions Suicidal Thoughts: denies suicidal thoughts Homicidal Thoughts: denies homicidal thoughts Hallucinations: no auditory hallucinations and no visual hallucinations Cognition: recent memory grossly intact, remote memory grossly intact, attention grossly intact and language grossly intact Estimated Intelligence: consistent with education level Insight: + fair insight Judgement: + fair judgement Vital Signs (Past 24 Hours) Last Vital Signs Temp 36.7 C 08/17/18 07:29 Pulse 75 08/17/18 07:29 Resp 18 08/17/18 07:29 BP 115/74 08/17/18 07:29 Pulse Ox 97 08/17/18 07:29 Review of Systems Constitutional: denied Cardiovascular: denied Respiratory: denied Gastrointestinal: denied Neurological: denied Psychiatric: denies symptoms other than stated above Total of at least 10 systems reviewed, pertinent positives listed above and in HPI Results & Data Medications Administered Bupropion HCl (Wellbutrin-Xl) 150 mg PO DAILY MARTY Stop: 09/16/18 08:59 Last Admin: 08/17/18 07:53 Dose: 150 mg Sodium Chloride (Nss 1000ml) 1,000 mls @ 100 mls/hr IV .Q10H MARTY Stop: 09/16/18 03:35 Last Admin: 08/17/18 04:20 Dose: 100 mls/hr Ceftriaxone Sodium 2,000 mg/ (Dextrose) 70 mls @ 100 mls/hr IV Q24H [facility]; Protocol Stop: 08/22/18 03:59 Last Infusion: 08/17/18 05:12 Dose: 0 mls/hr Admin: 08/17/18 04:20 Dose: 100 mls/hr Metoprolol Tartrate (Lopressor) 25 mg PO BID MARTY Stop: 09/16/18 08:59 Last Admin: 08/17/18 07:53 Dose: 25 mg Nicotine (Nicoderm Cq) 7 mg TD QAM MARTY Stop: 09/16/18 08:59 Last Admin: 08/17/18 07:53 Dose: 7 mg Pantoprazole Sodium (Protonix) 40 mg PO DAILY [facility] Stop: 09/16/18 08:59 Last Admin: 08/17/18 07:54 Dose: 40 mg
[2018-08-17 09:26] LABS: Basophils # (auto) 0.02 K/uL (0-0.2); Basophils % (auto) 0.2 %; Eosinophils % (auto) 1.1 %; Hematocrit (blood only) 40.1 % (37-47); Hemoglobin 13.5 g/dL (12.0-16.0); Immature Granulocytes # (auto) 0.02 K/uL (0.00-0.02); Immature Granulocytes % (auto) 0.2 %; Lymphocytes % (auto) 31.3 %; Mean Corpuscular Volume 99.8 fL (80-100); Mean Platelet Volume 9.3 fL (7.4-10.4); Monocytes # (auto) 1.06 K/uL (0.11-0.59); Monocytes % (auto) 11.8 %; Neutrophils # (auto) 4.96 K/uL (1.4-6.5); Neutrophils % (auto) 55.4 %; Platelet Count 188 K/uL (130-400); RDW Coefficient of Variation 12.9 % (11.5-14.5); RDW Standard Deviation 46.6 fL (36.4-46.3); Red Blood Count 4.02 M/uL (4.2-5.4); White Blood Count 8.96 K/uL (4.8-10.8)
[2018-08-17 09:30] LABS: Mean Corpuscular Hgb Conc 33.7 g/dL (32-36)
[2018-08-17 09:48] LABS: Alanine Aminotransferase 37 U/L (12-78); Albumin Level 3.5 gm/dl (3.4-5.0); Aspartate Aminotransferase 33 U/L (15-37); BUN Creatinine Ratio 4.1 (10-20); Bilirubin Direct < 0.1 mg/dl (0-0.2); Blood Urea Nitrogen 7 mg/dl (7-18); Calcium 8.8 mg/dl (8.5-10.1); Carbon Dioxide 27 mmol/L (21-32); Chloride 102 mmol/L (98-107); Creatinine Clr Calc Pharmacy 35.9 ml/min; Est GFR (African American) 40.6; Est GFR (Non-African American) 35.1; Glucose 128 mg/dl (70-99); Magnesium 2.2 mg/dl (1.8-2.4); Potassium 3.5 mmol/L (3.5-5.1); Sodium 135 mmol/L (136-145)
[2018-08-17 09:50] LABS: Alkaline Phosphatase 82 U/L (45-117); Bilirubin,Total 0.2 mg/dl (0.1-1); Total Protein 7.1 gm/dl (6.4-8.2)
--- NOTE | 2018-08-17 15:29 | Discharge Summary ---
Date of Service August 17, 2018 Admission HPI Per Admitting Provider Kay Al is a 53-year-old female with PMH of HTN, GERD, and alcohol abuse. Pt was admitted medically on 08/17/18 after a 4-day binge on alcohol. Pt is interviewed with presence of a friend, Michael, with patient's permission. Pt reports a history of alcohol abuse with at least 2 previous inpatient D&A rehab stays. Pt states most recently she was at "[facility]" in [place] in 2017 and completed 28 days of treatment. Pt followed up at [facility] for outpatient D& A treatment, then stopped treatment recently due to cost and belief that she had been doing better. Pt states she has been a "social drinker" since that time, but admits that things have been rough recently. She states she and her significant other went to [place] for several days. Pt reports consuming 3-4 drinks daily while on vacation. Once home, the patient celebrated Thanksgiving with her family in [place] and denies consuming alcohol during that time. After returning home, the patient states she and her daughter had some disagreements and patient began drinking again. Pt reports a 4-day binge, but is unable to give clear report of average intake during those days. Initially patient was hesitant to report drinking at all, then announced having 2 drinks per day, then finally admitting that a handle of vodka was lasting her 1.5 days. Pt states situationally, she has been having some difficulty recently. She reports a divorce 2-years ago after discovering her of 20+ years had been unfaithful. She has a 17-year-old daughter whom she lives with, with whom she has had disagreements. Pt states, "I came back from the holiday and my daughter just left me, I just thought 'If I'm going to be treated like this, I can go back to [place]'." Pt's friend interjects to remind patient, "You know she left because when she found you, you were in a pretty rough place" - to which patient verbalizes understanding and remorse. Pt states states over the last 4 days she has been unable to care for herself, experienced limited nutritional intake, and was not attending to ADLs. Aside from the context of this recent binge, patient denies symptoms of altered sleep, appetite, or energy level. Pt states prior the her alcohol use, her mood was "normal I'd say ". She denies significant anxiety symptoms. Pt states she was put on bupropion while at [facility] for smoking cessation. This has provided some assistance with cutting back on use, and patient denies any significant changes in mood or anxiety. Pt denies SI/HI, SIB, A/V hallucinations, and other acute psychiatric concerns. At this time, patient reports willingness for inpatient D&A rehabilitation and is hopeful for medical discharge and transfer this morning. Admission Exam Per Admitting Provider Constitutional: WD/WN, vitals as above no acute distress Eyes: PERRL and EOM intact bilaterally ENMT: external ear and nose normal, oropharynx normal Neck: trachea midline, no thyromegaly Respiratory: normal respiratory effort, lungs clear to auscultation Cardiovascular: RRR, no murmur, no edema Gastrointestinal (Abdomen): normal bowel sounds, soft, nontender, no hepatosplenomegaly Musculoskeletal: no cyanosis or clubbing, extremities motor strength 5/5 Skin: no rashes, warm and dry Neurologic: PERRL, EOMI, accommodation nl, no face palsy, no dysarthria CN' s II-XI intact bilaterally and awake Psychiatric: Orientation: alert, oriented to person and oriented to place; + not oriented to time Apperance: + disheveled Eye Contact: good eye contact Motor Behavior: steady gait and station Speech: normal rate/rhythm/volume of speech Affect: + anxious affect Mood: + anxious mood Thought Process: clear/ coherent thought process Thought Content: + hopelessness Suicidal Thoughts: denies suicidal thoughts Homicidal Thoughts: denies homicidal thoughts Hallucinations: no auditory hallucinations and no visual hallucinations Cognition: recent memory grossly intact Estimated Intelligence: average estimated intelligence Insight: good insight Judgement: + fair judgement Principal Diagnosis Acute Kidney Injury Discharge Exam Constitutional WD/WN, vitals as above cooperative Eyes EOM intact bilaterally; sclerae not anicteric ENMT external ear and nose normal, oropharynx normal Neck normal visual inspection and trachea midline Respiratory normal respiratory effort, lungs clear to auscultation Cardiovascular RRR, no murmur, no edema Gastrointestinal (Abdomen) Inspection/Auscultation: normal bowel sounds Percussion/Palpation: abdomen soft; abdomen nontender, no guarding and abdomen not rigid Musculoskeletal no cyanosis or clubbing, extremities motor strength 5/5 Skin no rashes, warm and dry Neurologic moves all extremities and awake Psychiatric Orientation: alert and oriented x 3 Eye Contact: good eye contact Motor Behavior: n tremor Affect: euthymic affect Discharge Data Allergies Allergy/AdvReac Type Severity Reaction Status Date / Time No Known Allergies Allergy Verified 02/20/16 20:37 Consultations 08/17/18 03:36 Consult Case Management - Discharge Planning Routine Consult Psychiatry Routine Ordered Studies 08/17/18 01:07 renal/blad retro comp Urgent - bladder wall thickening consistent with cystitis, likely infectious - No hydronephrosis XR hip RT 2-3V w/pelvis - Negative for fracture or dislocation Laboratory Results - last 24 hr 08/16/18 08/16/18 08/16/18 14:49 14:49 14:49 WBC RBC Hgb Hct MCV MCH MCHC RDW Std Deviation RDW Coeff of Ahsan Plt Count MPV Immature Gran % (Auto) Neut % (Auto) Lymph % (Auto) [place] % (Auto) Eos % (Auto) Baso % (Auto) Immature Gran # (Auto) Neut # (Auto) Lymph # (Auto) [place] # (Auto) Eos # (Auto) Baso # (Auto) PT INR Sodium 134 L Potassium 2.9 L Chloride 95 L Carbon Dioxide 30 Anion Gap 9.0 BUN 10 Creatinine 2.31 H Est Cr Clr Drug Dosing 25.9 Est GFR ( Amer) 27.5 Est GFR (Non-Af Amer) 23.7 BUN/Creatinine Ratio 4.3 L Glucose 163 H Calcium 9.3 Magnesium 2.4 Total Bilirubin 0.2 Direct Bilirubin AST 61 H ALT 51 Alkaline Phosphatase 100 Total Protein 8.1 Albumin 3.9 Globulin 4.2 H Albumin/Globulin Ratio 0.9 Folate TSH 0.289 L Free T4 Urine Color Urine Appearance Urine pH Ur Specific [place] Urine Protein Urine Glucose (UA) Urine Ketones Urine Blood Urine Nitrite Urine Bilirubin Urine Urobilinogen Ur Leukocyte Esterase Urine WBC (Auto) Urine RBC (Auto) U Hyaline Cast (Auto) U Epithel Cells (Auto) Urine Bacteria (Auto) Salicylates 2.2 L Urine Opiates Screen Ur Methadone, Qual Acetaminophen < 2 L Urine Barbiturates Ur Phencyclidine (PCP) U Amphetamin/Meth Scrn MDMA (Ecstasy) Screen U Benzodiazepines Scrn Ur Cocaine Metabolite U Marijuana (THC) Screen Ethyl Alcohol mg/dL < 3.0 08/16/18 08/16/18 08/16/18 16:25 16:25 22:06 WBC RBC Hgb Hct MCV MCH MCHC RDW Std Deviation RDW Coeff of Ahsan Plt Count MPV Immature Gran % (Auto) Neut % (Auto) Lymph % (Auto) [place] % (Auto) Eos % (Auto) Baso % (Auto) Immature Gran # (Auto) Neut # (Auto) Lymph # (Auto) [place] # (Auto) Eos # (Auto) Baso # (Auto) PT INR Sodium 138 Potassium 3.2 L Chloride 102 Carbon Dioxide 29 Anion Gap 7.0 BUN 6 L Creatinine 2.07 H Est Cr Clr Drug Dosing 28.9 Est GFR ( Amer) 31.3 Est GFR (Non-Af Amer) 27.0 BUN/Creatinine Ratio 2.8 L Glucose 103 H Calcium 9.1 Magnesium Total Bilirubin Direct Bilirubin AST ALT Alkaline Phosphatase Total Protein Albumin Globulin Albumin/Globulin Ratio Folate TSH Free T4 Urine Color Yellow Urine Appearance Turbid H Urine pH 6.5 Ur Specific [place] 1.011 Urine Protein 1+ H Urine Glucose (UA) Negative Urine Ketones Negative Urine Blood 1+ H Urine Nitrite Positive H Urine Bilirubin Negative Urine Urobilinogen Negative Ur Leukocyte Esterase 3+ H Urine WBC (Auto) >30 H Urine RBC (Auto) 10-30 H U Hyaline Cast (Auto) 1-5 U Epithel Cells (Auto) >30 H Urine Bacteria (Auto) 4+ H Salicylates Urine Opiates Screen Neg Ur Methadone, Qual Neg Acetaminophen Urine Barbiturates Neg Ur Phencyclidine (PCP) Neg U Amphetamin/Meth Scrn Neg MDMA (Ecstasy) Screen Neg U Benzodiazepines Scrn Neg Ur Cocaine Metabolite Neg U Marijuana (THC) Screen Neg Ethyl Alcohol mg/dL 08/17/18 08/17/18 08/17/18 05:26 05:26 05:26 WBC RBC Hgb Hct MCV MCH MCHC RDW Std Deviation RDW Coeff of Ahsan Plt Count MPV Immature Gran % (Auto) Neut % (Auto) Lymph % (Auto) [place] % (Auto) Eos % (Auto) Baso % (Auto) Immature Gran # (Auto) Neut # (Auto) Lymph # (Auto) [place] # (Auto) Eos # (Auto) Baso # (Auto) PT 10.0 INR 1.0 Sodium Potassium Chloride Carbon Dioxide Anion Gap BUN Creatinine Est Cr Clr Drug Dosing Est GFR ( Amer) Est GFR (Non-Af Amer) BUN/Creatinine Ratio Glucose Calcium Magnesium Total Bilirubin 0.2 Direct Bilirubin 0.1 AST 35 ALT 38 Alkaline Phosphatase 82 Total Protein 7.3 Albumin 3.4 Globulin Albumin/Globulin Ratio Folate 12.72 TSH Free T4 0.97 Urine Color Urine Appearance Urine pH Ur Specific [place] Urine Protein Urine Glucose (UA) Urine Ketones Urine Blood Urine Nitrite Urine Bilirubin Urine Urobilinogen Ur Leukocyte Esterase Urine WBC (Auto) Urine RBC (Auto) U Hyaline Cast (Auto) U Epithel Cells (Auto) Urine Bacteria (Auto) Salicylates Urine Opiates Screen Ur Methadone, Qual Acetaminophen Urine Barbiturates Ur Phencyclidine (PCP) U Amphetamin/Meth Scrn MDMA (Ecstasy) Screen U Benzodiazepines Scrn Ur Cocaine Metabolite U Marijuana (THC) Screen Ethyl Alcohol mg/dL 08/17/18 08/17/18 09:14 09:14 WBC 8.96 RBC 4.02 L Hgb 13.5 Hct 40.1 MCV 99.8 MCH 33.6 MCHC 33.7 RDW Std Deviation 46.6 H RDW Coeff of Ahsan 12.9 Plt Count 188 MPV 9.3 Immature Gran % (Auto) 0.2 Neut % (Auto) 55.4 Lymph % (Auto) 31.3 [place] % (Auto) 11.8 Eos % (Auto) 1.1 Baso % (Auto) 0.2 Immature Gran # (Auto) 0.02 Neut # (Auto) 4.96 Lymph # (Auto) 2.80 [place] # (Auto) 1.06 H Eos # (Auto) 0.10 Baso # (Auto) 0.02 PT INR Sodium 135 L Potassium 3.5 Chloride 102 Carbon Dioxide 27 Anion Gap 7.0 BUN 7 Creatinine 1.67 H D Est Cr Clr Drug Dosing 35.9 Est GFR ( Amer) 40.6 Est GFR (Non-Af Amer) 35.1 BUN/Creatinine Ratio 4.1 L Glucose 128 H Calcium 8.8 Magnesium 2.2 Total Bilirubin 0.2 Direct Bilirubin < 0.1 AST 33 ALT 37 Alkaline Phosphatase 82 Total Protein 7.1 Albumin 3.5 Globulin Albumin/Globulin Ratio Folate TSH Free T4 Urine Color Urine Appearance Urine pH Ur Specific [place] Urine Protein Urine Glucose (UA) Urine Ketones Urine Blood Urine Nitrite Urine Bilirubin Urine Urobilinogen Ur Leukocyte Esterase Urine WBC (Auto) Urine RBC (Auto) U Hyaline Cast (Auto) U Epithel Cells (Auto) Urine Bacteria (Auto) Salicylates Urine Opiates Screen Ur Methadone, Qual Acetaminophen Urine Barbiturates Ur Phencyclidine (PCP) U Amphetamin/Meth Scrn MDMA (Ecstasy) Screen U Benzodiazepines Scrn Ur Cocaine Metabolite U Marijuana (THC) Screen Ethyl Alcohol mg/dL Hospital Course (1) DAVE (acute kidney injury): Prerenal Azotemia likely secondary to dehydration given reduced eating/ drinking in multiple days - Cr 2.31 on arrival, Cr 2.07 s/p IV fluid bolus in ED; 1.67 on morning of discharge - Tolerating fluids on discharge -F/u repeat BMP as outpatient (2) Urinary tract infection: UA suspicious for UTI - Urine Culture positive for E. coli >100,000 CFU; sensitivities still pending on discharge. - Given Keflex 500mg in ED x one dose - IV Ceftriaxone 2,000mg x one dose while on hospital floor. - Discharged with Keflex 500mg BID x5 days, total of 10 pills. (3) Alcohol abuse: Known history of alcohol abuse Neg Alcohol blood level on arrival - given Folate, Thiamin,Ativan, multivitamin in ED - Alcohol withdrawal protocol in place - Discharged on Folic Acid 1,000mg, paper prescription written for patient to take to rehab - Discharged to Alcohol rehabilitation [facility]. (4) Hypokalemia: K 2.9 on arrival repleted with 40 meq in ED Gave another 40 meq PO on hospital floor Resolved on morning of discharge 3.5. (5) GERD (gastroesophageal reflux disease): Continue PPI (6) Hypertension: Restart Home Metoprolol 25 mg BID Total Time Total Time Spent Total Time Spent (In Minutes): 30 minutes Total Time Includes: Examination of the Patient, Discharge Planning and Medication Reconciliation Discharge Plan Discharge Items Patient Disposition: Drug & Alcohol Rehab Reason For Visit: DAVE, UTI Discharge Diagnosis: Alcohol Abuse; Acute Kidney Injury; Urinary Tract Infection Condition: Good Discharge Goals: Improve disease control and Therapeutic intervention Activity: Per 'Additional Instructions' section Non-emergency contact: Primary Care Provider Call non-emergency contact if: you have any medication questions and you have a fever Follow-up/Referrals: Ricky Marley III, CRNP [Primary Care Provider] - Diet: Regular Addtl Provider Instructions: You were seen here for Alcohol Abuse which caused an Acute Kidney Injury. Your Kidneys were injured as you weren't able to adequately hydrate yourself with proper fluids. Creatinine level is used to measure kidney injury, your Creatinine level was elevated when you were initially seen. We were able to hydrate you through IV fluids and your creatinine values decreased to more normal levels. Please ensure you continue to hydrate your self with water and avoid drinks that can dehydrate you more such as caffeinated beverages. A prescription for Folic Acid 1gm or 1,000mg is printed for you. Take one pill every day. This medication is important as alcohol does not contain adequate supply of Folic Acid and a lack of Folic Acid can cause Anemia or prevent your body from making Red Blood Cells adequately. You were also found to have an infection of your Urinary Tract that was found through lab work (Urine anaylsis and urine culture) and imaging studies ( Bladder U/S). Your urine culture grew a bacteria called E. coli which is the most common cause of urinary tract infection. You were need to complete a course of antibiotics which you were receiving here in the ED. This medication is Cephalexin (Keflex) 500mg twice per day for 5 days; a total of 10 pills. This medication is commonly used to treat urinary infections against E. coli. Urine culture sensitivities are still pending to ensure that this medication will kill the bacteria. You are being discharged to an alcohol rehabilitation center. Upon, discharge from there please follow up with your Primary Care Doctor. You will need to to have blood work to make sure that your kidney function has returned to normal. Prescriptions: New cephalexin 500 mg capsule 500 mg PO BID 5 Days Qty: 10 RF: 0 folic acid 1 mg tablet 1 mg PO DAILY 30 Days Qty: 30 RF: 0 Continue omeprazole 40 mg capsule,delayed release(DR/EC) 40 mg PO DAILY RF: 0 bupropion HCl 150 mg tablet extended release 24 hr 150 mg PO DAILY RF: 0 metoprolol tartrate 25 mg tablet 25 mg PO BID RF: 0 Krames/Other Patient Handouts: Folic Acid Oral tablet, Addiction Alcohol, Injury Acute Kidney Dc Admission Data Admit Date/Time: 08/17/18 02:27 Attending Provider: Robin Pittman Admit Provider: Robin Pittman Primary Care Provider: Ricky Marley III Other Providers: Katy Loja Service: Medical Other Pending Studies at Discharge: Yes Studies:: Urine Culture sensitivities Supervising Physician Co-Signing Physician Notes ATTENDING NOTE I saw the patient concurrent with Dr. Adorno and agree with the history, exam, impression, and plan noted above. Upon exam, patient is alert and oriented. NAD. Non toxic appearance. Affect appropriate. She is calm. Thought process is appropriate. She denies SI/HI. She remains agreeable to inpatient rehabilitation at [facility] (she has been there previously) and they are willing to accept today. Her DAVE continues to improve, and I she should continue to improve on oral hydration. Agree with repeat BMP later this week or next, with outpatient follow up with PCP.
[2018-08-17] MEDS ORDERED: INFLUENZA VIRUS QUAD VACCINE 0.5 ML SYR IM ONE (16:30)
[2018-08-17] MEDS ORDERED: INFLUENZA ADMINISTRATION CHARGE ONE (16:30)
== END 2018-08-17 17:04 | disposition alcohol treatment (31) ==
LOC: 4E 13:44 → ED 13:44 → 4E 08-17 03:36

== ENCOUNTER 2025-05-13 16:24 | Inpatient (IN) ==
[2025-05-13 16:45] VITALS: TEMP 98.2
--- NOTE | 2025-05-13 16:47 | Emergency Department Note ---
Impression & Plan Alcohol intoxication, Fall, Acute alcoholic hepatitis ED Provider Note HISTORY OF PRESENT ILLNESS: Patient is a 59-year-old female presenting intoxicated with a facial injury. A friend went to go check on the patient and found her in her basement on the ground between the table in her chair. Patient is not sure how she fell. She is notable to have right periorbital ecchymosis and swelling. She states that she has been drinking Warner vodka since 4 AM this morning. EMS reports that the bottle was three fourths empty. Patient states that her left elbow hurts and her right eye hurts. She reports that she was not trying to hurt herself. She states that "I am just disappointed when I look and see myself in the mirror." ROS: as above PHYSICAL EXAM: Primary Survey Airway: Intact Breathing: Normal, breath sounds equal bilaterally Circulation: Skin warm, distal pulses 2+, capillary refill less than 2 seconds Disability Pupils: Equal and reactive to light, 3mm, brisk GCS: 14, E = 4, V=4, M= 6 Motor Function: Moves all extremities. Sensory: No deficits Secondary Survey GEN: Well developed and well-nourished HENT: Head: Patient noted to have ecchymosis and periorbital swelling in the right eye region. Mouth/Throat: Midface stable. No malocclusion. Eyes: EOMI. Pupils are 3 mm, round and reactive bilaterally. Neck: No midline C-spine tenderness. No step-offs. Cardiovascular: RRR. Pulses present in all 4 extremities. Pulmonary/Chest: BS equal bilaterally. No tenderness or ecchymosis. Abdomen: No tenderness or ecchymosis. Musculoskeletal: Pelvis: No instability. Back: No midline tenderness. No step-offs or deformities. Extremities: No gross deformities. No TTP. Skin: Patient has scattered areas of ecchymosis to her bilateral upper extremities. Noted to have a healing skin tear to the left elbow. Neuro: No focal neurological deficits. GCS as above. Psych: Patient is tearful and clinically intoxicated. MDM: - Vitals signs showed hypertension and tachycardia. - History obtained via patient and EMS, given patient's intoxication. History as above. - Chronic conditions affecting care: GERD; HTN; anxiety/depression - Differential diagnoses include, but are not limited to: Alcohol intoxication; drug intoxication; intracranial hemorrhage; rib fracture; liver laceration - Order placed for continuous cardiac monitoring. At this time, monitor showed rate of 100 bpm with normal sinus rhythm, per my interpretation. - External medical records reviewed. - Laboratory workup interpreted by myself showed normal WBC; elevated hemoglobin (17.2 - likely from dehydration); normal PT/INR; elevated anion gap (20); transaminitis (AST 226; ALT 124 - likely from patient's binge drinking); normal bilirubin; normal lipase; normal CK; normal troponin; negative salicylate/acetaminophen levels; elevated alcohol (435.7) - COVID negative - CT head wo contrast for acute intracranial pathology. - CT face wo contrast negative for acute facial fracture. - CT cervical spine wo contrast negative for acute cervical spine fracture. Noted to have spinal stenosis and neural foraminal narrowing. - CT chest with IV contrast negative for acute traumatic injury. - CT abdomen/pelvis with IV contrast negative for acute traumatic injury. Noted to have cholelithiasis and mild gallbladder wall thickening. Noted to have fatty infiltration of the liver. - Patient given 1L NS in ER. - Discussion was had with case management manager about patient's case and need for admission - Hospitalist consulted for admission - [facility] ASSESSMENT AND PLAN: Diagnosis: Alcohol intoxication; fall; acute alcoholic hepatitis Plan: admit Past Med/Surg History Problem List (Updated 05/13/25 @ 22:34 by Marcia Grajeda MD) Acute alcoholic hepatitis (Acute) Fall (Acute) Alcohol intoxication (Acute) Depression (Acute) Alcohol abuse (Acute) Alcohol intoxication (Acute) Iron deficiency Trigger finger Palmar fibromatosis Palmar nodule Hypertriglyceridemia (Chronic) Family history of colon cancer Vitamin B12 deficiency (Chronic) Laryngopharyngeal reflux (Chronic) Benign essential hypertension (Chronic) Depression with anxiety (Chronic) Anxiety state, unspecified (Acute) Allergic rhinitis (Acute) Alcohol abuse, episodic (Acute) Medical History History of melanoma GERD (gastroesophageal reflux disease) Hypertension Surgical History History of bilateral tubal ligation ~2014 History of dilatation and curettage x2 History of colonoscopy with polypectomy History of surgical procedure on mouth dental implant History of tooth extraction History of wisdom tooth extraction H/O Mohs micrographic surgery for skin cancer Family History Father Colon cancer Myocardial infarction Family history of reaction to anesthesia not able to void for hours after colostomy reversal Sister Family history of reaction to anesthesia "after having a she tried to get off the table" Denies family history of Ovarian cancer Prostate cancer Breast cancer Social History Smoking Status: Current every day smoker Tobacco Type: Cigarettes Age Started Using Tobacco: 17; Cigarettes Per Day: 5 a day; Second Hand Exposure: Yes (self); Do You Dip or Chew Tobacco: No; Hx Alcohol Use: Yes Alcohol type: beer and wine Alcohol Intake Frequency: Monthly or Less Hx Substance Use: No Preferred Language: Upper Sorbian Communication Ability: Effective Visual Impairment: No Limitations Hearing Ability: Normal Radio Presenter Required: No Beliefs That Will Affect Care: None marital status: Current Living Situation: Family Current Living Situation Comment: Lives with daughter current occupational status: retired current occupation: teaching Feels Safe at Home: Yes Childhood Exposure to Second-Hand Smoke: Yes Diet: regular Dental Care, Regularly: Yes Physical Activity Frequency: Daily Seatbelt Use: always Sunscreen Use: Yes Assistive Devices: Contacts and Glasses Allergies Allergies Allergy/AdvReac Type Severity Reaction Status Date / Time No Known Allergies Allergy Verified 02/01/25 12:41 Home Meds Home Medications Medication Instructions Recorded Confirmed No Known Home Medications 05/03/25 05/13/25 Results & Data (ED) Vital Signs Vital Signs - 24 hr 05/13/25 16:34 05/13/25 16:46 05/13/25 16:46 Temperature 36.8 C Temperature Source Oral Pulse Rate 101 H Pulse Rate [Apical] Pulse Rate from SpO2 Sensor Respiratory Rate 20 Blood Pressure 144/85 H Blood Pressure [Left Arm] Blood Pressure Mean 104 Blood Pressure Mean [Left Arm] Pulse Oximetry 97 96 96 Oxygen Delivery Method Room Air Room Air Room Air Sepsis Recent Fever Within 48 Hours No Sepsis New/Unexplained Change in Mental Status N/A Sepsis Action Taken by Nursing No Action Required 05/13/25 17:29 05/13/25 18:16 05/13/25 20:06 Temperature Temperature Source Pulse Rate 95 H Pulse Rate [Apical] 115 H Pulse Rate from SpO2 Sensor 100 H Respiratory Rate 20 Blood Pressure Blood Pressure [Left Arm] 139/71 Blood Pressure Mean Blood Pressure Mean [Left Arm] 93 Pulse Oximetry 93 95 Oxygen Delivery Method Room Air Sepsis Recent Fever Within 48 Hours Sepsis New/Unexplained Change in Mental Status Sepsis Action Taken by Nursing 05/13/25 20:27 05/13/25 20:27 05/13/25 20:27 Temperature Temperature Source Pulse Rate Pulse Rate [Apical] Pulse Rate from SpO2 Sensor Respiratory Rate Blood Pressure 161/95 H 161/95 H 161/95 H Blood Pressure [Left Arm] Blood Pressure Mean 110 110 110 Blood Pressure Mean [Left Arm] Pulse Oximetry Oxygen Delivery Method Sepsis Recent Fever Within 48 Hours Sepsis New/Unexplained Change in Mental Status Sepsis Action Taken by Nursing 05/13/25 20:36 05/13/25 20:39 05/13/25 21:03 Temperature 36.8 C Temperature Source Oral Pulse Rate 108 H Pulse Rate [Apical] 106 H Pulse Rate from SpO2 Sensor 107 H 111 H Respiratory Rate 18 21 Blood Pressure Blood Pressure [Left Arm] 161/95 H Blood Pressure Mean Blood Pressure Mean [Left Arm] 117 Pulse Oximetry 95 96 97 Oxygen Delivery Method Room Air Sepsis Recent Fever Within 48 Hours Sepsis New/Unexplained Change in Mental Status Sepsis Action Taken by Nursing 05/13/25 21:15 05/13/25 21:45 05/13/25 21:51 Temperature Temperature Source Pulse Rate 99 H 102 H Pulse Rate [Apical] Pulse Rate from SpO2 Sensor 111 H 99 H 102 H Respiratory Rate 21 28 H Blood Pressure Blood Pressure [Left Arm] Blood Pressure Mean Blood Pressure Mean [Left Arm] Pulse Oximetry 95 94 94 Oxygen Delivery Method Sepsis Recent Fever Within 48 Hours Sepsis New/Unexplained Change in Mental Status Sepsis Action Taken by Nursing 05/13/25 22:00 05/13/25 22:06 05/13/25 22:24 Temperature Temperature Source Pulse Rate 102 H 105 H Pulse Rate [Apical] Pulse Rate from SpO2 Sensor 103 H 105 H Respiratory Rate 19 21 Blood Pressure 139/83 Blood Pressure [Left Arm] Blood Pressure Mean 109 Blood Pressure Mean [Left Arm] Pulse Oximetry 94 95 Oxygen Delivery Method Sepsis Recent Fever Within 48 Hours Sepsis New/Unexplained Change in Mental Status Sepsis Action Taken by Nursing Laboratory Data 05/13/25 16:45 05/13/25 16:45 Lab Results 05/13/25 05/13/25 Range/Units 16:45 16:56 WBC 9.18 (4.8-10.8) K/ul RBC 5.36 (4.20-5.40) M/uL Hgb 17.2 H (12.0-16.0) g/dl POC Hgb 18.0 H (12.0-16.0) g/dl Hct 49.0 H (37.0-47.0) % POC Hct 53 H (37-47) % MCV 91.4 (80.0-100.0) fL MCH 32.1 (25.0-34.0) pg MCHC 35.1 (32.0-36.0) g/dL RDW Std Deviation 42.2 (36.4-46.3) fL RDW Coeff of Ahsan 12.6 (11.5-14.5) % Plt Count 116 L (130-400) K/uL MPV 9.9 (9.4-12.4) fL Immature Gran % (Auto) 0.7 % Neut % (Auto) 72.8 % Lymph % (Auto) 21.1 % Polk % (Auto) 5.2 % Eos % (Auto) 0.0 % Baso % (Auto) 0.2 % Neut # (Auto) 6.68 H (1.40-6.50) K/uL Lymph # (Auto) 1.94 (1.20-3.40) K/uL Polk # (Auto) 0.48 (0.11-0.59) K/uL Eos # (Auto) 0.00 (0.00-0.50) K/uL Baso # (Auto) 0.02 (0.00-0.20) K/uL Immature Gran # (Auto) 0.06 (0.01-0.20) K/uL PT 10.0 (9.0-12.0) Seconds INR 0.9 (0.9-1.1) APTT 25 (21-31) Seconds PTT Ratio 0.9 POC Sodium 136 (135-144) mmol/L Sodium 138 (136-145) mmol/L POC Potassium 3.8 (3.3-5.0) mmol/L Potassium 4.0 (3.5-5.1) mmol/L POC Chloride 100 L (101-112) mmol/L Chloride 96 L (98-107) mmol/L Carbon Dioxide 22 (21-32) mmol/L POC Total CO2 21 L (24-31) mmol/L Anion Gap 20 H (3-11) POC Anion Gap 20.0 (16-25) mmol/L POC BUN 28 H (7-18) mg/dl BUN 29 H (6-23) mg/dl Creatinine 0.68 (0.6-1.2) mg/dl POC Creatinine 1.1 (0.6-1.3) mg/dl Est Cr Clr Drug Dosing 82.1 ml/min eGFR 101.52 BUN/Creatinine Ratio 42.6 H (10-20) Glucose 81 (70-99(Fasting)) mg/dl POC Glucose (other) 82 (70-99) mg/dl Calcium 8.6 (8.6-10.3) mg/dl POC Ioniz Calcium Eliza 0.91 L (1.12-1.32) mmol/l Total Bilirubin 0.5 (0.2-1.0) mg/dl AST 226 H (13-39) U/L ALT 124 H (7-52) U/L Alkaline Phosphatase 170 H (34-104) U/L Total Creatine Kinase 68 (26-192) U/L Troponin I High Sens 9.7 (0-14) pg/ml Total Protein 7.7 (6.0-8.3) gm/dl Albumin 4.1 (3.4-5.0) gm/dl Globulin 3.6 (2.5-4.0) gm/dl Albumin/Globulin Ratio 1.1 (0.9-2) Lipase 69 (11-82) U/L Salicylates < 3.0 L (3.0-30) mg/dl Acetaminophen < 3 L (10-30) ug/ml Ethyl Alcohol mg/dL 435.7 H (<10.0) mg/dl SARS-CoV-2, RNA, NAAT NEGATIVE (NEGATIVE) Imaging Data Radiologist's Impression: Abdomen/Pelvis CT 05/13/25 16:38 Clinical History: Injury Technique: Axial computed tomography images were obtained of the abdomen and pelvis without intravenous contrast. Findings: There is fatty infiltration of the liver. There is a 1.1 cm round relatively high attenuation area in the left hepatic lobe. There are suspected small gallstones and there is apparent mild gallbladder wall thickening. No bile duct dilatation is noted. The spleen is of normal size. No focal splenic lesion is evident. The pancreas appears normal with no sign of acute or chronic pancreatitis and no mass lesion noted. The pancreatic duct is of normal caliber. The adrenal glands appear unremarkable. No renal or proximal ureteral calculi are seen. There is no hydronephrosis or perinephric stranding. No definite renal mass lesion is identified. The abdominal aorta is of normal caliber. No abdominal adenopathy is seen. There is prominence of the gastric wall that may be due to the decompressed state. There is no sign of small bowel obstruction. The colon appears unremarkable. The appendix appears normal also. No free intraperitoneal fluid or air is identified. No distal ureteral or bladder calculi are seen. No obvious bladder mass lesion is evident. The iliac arteries are of normal caliber. No pelvic adenopathy is noted. No fracture is identified. No focal osseous lesion is seen. There is lumbar scoliosis and degenerative disc disease Impression: 1. No definite sign of abdominal organ injury 2. Cholelithiasis and suspected mild gallbladder wall thickening. A gallbladder ultrasound could be considered for further evaluation 3. Fatty infiltration of the liver 4. Small relatively high attenuation area in the left hepatic lobe that could be due to focal sparing of fatty infiltration. A liver mass cannot be excluded. This could also be further evaluated by ultrasound, though liver protocol abdominal MRI with and without contrast would be most accurate in assessment ACT 112: Positive. There are findings on this exam that require communication between the performing entity and the patient following Patient Test Result Information Act ([place] ACT 112) guidelines. Electronically signed by Андрей Newman 05-13-2025 5:[address] 05/13/25 16:38 Clinical history: Injury Technique: Axial computed tomography images were obtained of the cervical spine without intravenous contrast. Sagittal and coronal reconstructions were obtained Findings: No fracture is identified. No listhesis is seen. No focal osseous lesion is evident. The atlantoaxial articulation appears unremarkable. At C2-3, no disc herniation is identified. There is no spinal stenosis. The neural foramen are patent At C3-4, there is a disc bulge without spinal stenosis. There is mild right neural foramen narrowing At C4-5, there is a disc bulge without spinal stenosis. There is left greater than the right neural foramen narrowing that may affect the left C5 nerve root At C5-6, there is spinal stenosis due to a disc bulge. There is left greater than right neural foramen narrowing that may affect the left C6 nerve root At C6-7, there is mild spinal stenosis due to a disc bulge. There is bilateral neural foramen narrowing that may affect the exiting C7 nerve roots At C7-T1, there is a mild disc bulge. There is no spinal stenosis. The neural foramen are patent The visualized soft tissues of the neck appear unremarkable. No foreign body is seen Impression: 1. No definite cervical spine fracture 2. Spinal stenosis at C5-6 and C6-7 3. Left C4-5 and C5-6 and bilateral C6-7 neural foramen narrowing, which may affect the exiting nerve roots Electronically signed by Андрей Newman 05-13-2025 5:[address] 05/13/25 16:38 Clinical history: Injury Technique: Axial computed tomography images were obtained of the chest without intravenous contrast Findings: There is mild dependent subsegmental atelectasis in both lower lobes. The lungs otherwise appear clear without infiltrate or mass. There is no pleural effusion or pneumothorax. There is no sign of pulmonary fibrosis or other diffuse interstitial process. No endobronchial lesion is seen There is no mediastinal, hilar, or axillary adenopathy. The thoracic aorta is of normal caliber. There is no pericardial effusion No fracture is seen. No focal osseous lesion is evident Impression: Unremarkable CT of the chest Electronically signed by Андрей Newman 05-13-2025 5:[address] 05/13/25 16:38 Clinical history: Trauma Technique: Axial computed tomography images were obtained of the facial bones without intravenous contrast. Sagittal and coronal reconstructions were obtained Findings: No fracture is identified. No focal osseous lesion is noted. There is mucosal thickening throughout the paranasal sinuses. No air-fluid level is seen. The right osteomeatal unit is occluded by mucosal thickening The orbits appear unremarkable. No foreign body is seen. The nasal septum is deviated towards the right. No definite nasal polyp is noted Impression: 1. No definite facial bone fracture 2. Chronic sinusitis Electronically signed by Андрей Newman 05-13-2025 5:[address] 05/13/25 16:38 Clinical History: Injury. Technique: Axial computed tomography images were obtained of the brain from the vertex to the skull base without intravenous contrast. Findings: There is no sign of intracranial hemorrhage. There is normal berman-white matter differentiation with no sign of acute or old infarction. No midline shift or other form of herniation is identified. There is no hydrocephalus. No obvious mass lesion is seen on this noncontrast examination. There is mucosal thickening in the frontal, ethmoid, and maxillary sinuses. The mastoid air cells appear clear Impression: 1. Normal-appearing brain 2. Chronic sinusitis Electronically signed by Андрей Newman 05-13-2025 5:40 PM Discharge Plan Visit Data Chief Complaint: Alcohol Intoxication ED Provider: Marcia Grajeda Discharge Problem: Alcohol intoxication, Fall, Acute alcoholic hepatitis Condition: Fair Forms Stand Alone Forms: [facility] [place] [employer] Prescriptions Prescriptions: No Action No Known Home Medications Referrals Referrals: Ricky Marley III, CRNP [Primary Care Provider] -
[2025-05-13 17:14] LABS: Hematocrit (blood only) 49.0 % (37.0-47.0); Hemoglobin 17.2 g/dl (12.0-16.0); Immature Granulocytes # (auto) 0.06 K/uL (0.01-0.20); Immature Granulocytes % (auto) 0.7 %; Mean Corpuscular Hemoglobin 32.1 pg (25.0-34.0); Mean Corpuscular Volume 91.4 fL (80.0-100.0); Platelet Count 116 K/uL (130-400); RDW Standard Deviation 42.2 fL (36.4-46.3); Red Blood Count 5.36 M/uL (4.20-5.40); White Blood Count 9.18 K/ul (4.8-10.8)
[2025-05-13 17:28] LABS: Alanine Aminotransferase 124.0 U/L (7-52); Albumin Globulin Ratio 1.1 (0.9-2); Albumin Level 4.1 gm/dl (3.4-5.0); Alkaline Phosphatase 170.0 U/L (34-104); Anion Gap 20.0 (3-11); Bilirubin,Total 0.5 mg/dl (0.2-1.0); Blood Urea Nitrogen 29.0 mg/dl (6-23); Calcium 8.6 mg/dl (8.6-10.3); Carbon Dioxide 22.0 mmol/L (21-32); Chloride 96.0 mmol/L (98-107); Creatine Kinase 68.0 U/L (26-192); Creatinine Clr Calc Pharmacy 82.1 ml/min; Globulin 3.6 gm/dl (2.5-4.0); Glucose 81.0 mg/dl (70-99(Fasting)); Lipase 69.0 U/L (11-82); Potassium 4.0 mmol/L (3.5-5.1); Sodium 138.0 mmol/L (136-145); Total Protein 7.7 gm/dl (6.0-8.3)
[2025-05-13 17:36] LABS: Acetaminophen < 3 ug/ml (10-30); Salicylate < 3.0 mg/dl (3.0-30)
[2025-05-13 17:38] LABS: INR 0.9 (0.9-1.1); Partial Thromboplastin Time 25 Seconds (21-31); Prothrombin Time 10.0 Seconds (9.0-12.0)
--- NOTE | 2025-05-13 17:40 | CT Scan Report ---
Clinical History: Injury. Technique: Axial computed tomography images were obtained of the brain from the vertex to the skull base without intravenous contrast. Findings: There is no sign of intracranial hemorrhage. There is normal berman-white matter differentiation with no sign of acute or old infarction. No midline shift or other form of herniation is identified. There is no hydrocephalus. No obvious mass lesion is seen on this noncontrast examination. There is mucosal thickening in the frontal, ethmoid, and maxillary sinuses. The mastoid air cells appear clear Impression: 1. Normal-appearing brain 2. Chronic sinusitis Electronically signed by Андрей Newman 05-13-2025 5:40 PM
--- NOTE | 2025-05-13 17:42 | CT Scan Report ---
Clinical history: Injury Technique: Axial computed tomography images were obtained of the chest without intravenous contrast Findings: There is mild dependent subsegmental atelectasis in both lower lobes. The lungs otherwise appear clear without infiltrate or mass. There is no pleural effusion or pneumothorax. There is no sign of pulmonary fibrosis or other diffuse interstitial process. No endobronchial lesion is seen There is no mediastinal, hilar, or axillary adenopathy. The thoracic aorta is of normal caliber. There is no pericardial effusion No fracture is seen. No focal osseous lesion is evident Impression: Unremarkable CT of the chest Electronically signed by Андрей Newman 05-13-2025 5:41 PM
--- NOTE | 2025-05-13 17:48 | CT Scan Report ---
Clinical history: Injury Technique: Axial computed tomography images were obtained of the cervical spine without intravenous contrast. Sagittal and coronal reconstructions were obtained Findings: No fracture is identified. No listhesis is seen. No focal osseous lesion is evident. The atlantoaxial articulation appears unremarkable. At C2-3, no disc herniation is identified. There is no spinal stenosis. The neural foramen are patent At C3-4, there is a disc bulge without spinal stenosis. There is mild right neural foramen narrowing At C4-5, there is a disc bulge without spinal stenosis. There is left greater than the right neural foramen narrowing that may affect the left C5 nerve root At C5-6, there is spinal stenosis due to a disc bulge. There is left greater than right neural foramen narrowing that may affect the left C6 nerve root At C6-7, there is mild spinal stenosis due to a disc bulge. There is bilateral neural foramen narrowing that may affect the exiting C7 nerve roots At C7-T1, there is a mild disc bulge. There is no spinal stenosis. The neural foramen are patent The visualized soft tissues of the neck appear unremarkable. No foreign body is seen Impression: 1. No definite cervical spine fracture 2. Spinal stenosis at C5-6 and C6-7 3. Left C4-5 and C5-6 and bilateral C6-7 neural foramen narrowing, which may affect the exiting nerve roots Electronically signed by Андрей Newman 05-13-2025 5:45 PM
--- NOTE | 2025-05-13 17:48 | CT Scan Report ---
Clinical history: Trauma Technique: Axial computed tomography images were obtained of the facial bones without intravenous contrast. Sagittal and coronal reconstructions were obtained Findings: No fracture is identified. No focal osseous lesion is noted. There is mucosal thickening throughout the paranasal sinuses. No air-fluid level is seen. The right osteomeatal unit is occluded by mucosal thickening The orbits appear unremarkable. No foreign body is seen. The nasal septum is deviated towards the right. No definite nasal polyp is noted Impression: 1. No definite facial bone fracture 2. Chronic sinusitis Electronically signed by Андрей Newman 05-13-2025 5:48 PM
--- NOTE | 2025-05-13 17:58 | CT Scan Report ---
Clinical History: Injury Technique: Axial computed tomography images were obtained of the abdomen and pelvis without intravenous contrast. Findings: There is fatty infiltration of the liver. There is a 1.1 cm round relatively high attenuation area in the left hepatic lobe. There are suspected small gallstones and there is apparent mild gallbladder wall thickening. No bile duct dilatation is noted. The spleen is of normal size. No focal splenic lesion is evident. The pancreas appears normal with no sign of acute or chronic pancreatitis and no mass lesion noted. The pancreatic duct is of normal caliber. The adrenal glands appear unremarkable. No renal or proximal ureteral calculi are seen. There is no hydronephrosis or perinephric stranding. No definite renal mass lesion is identified. The abdominal aorta is of normal caliber. No abdominal adenopathy is seen. There is prominence of the gastric wall that may be due to the decompressed state. There is no sign of small bowel obstruction. The colon appears unremarkable. The appendix appears normal also. No free intraperitoneal fluid or air is identified. No distal ureteral or bladder calculi are seen. No obvious bladder mass lesion is evident. The iliac arteries are of normal caliber. No pelvic adenopathy is noted. No fracture is identified. No focal osseous lesion is seen. There is lumbar scoliosis and degenerative disc disease Impression: 1. No definite sign of abdominal organ injury 2. Cholelithiasis and suspected mild gallbladder wall thickening. A gallbladder ultrasound could be considered for further evaluation 3. Fatty infiltration of the liver 4. Small relatively high attenuation area in the left hepatic lobe that could be due to focal sparing of fatty infiltration. A liver mass cannot be excluded. This could also be further evaluated by ultrasound, though liver protocol abdominal MRI with and without contrast would be most accurate in assessment ACT 112: Positive. There are findings on this exam that require communication between the performing entity and the patient following Patient Test Result Information Act ([place] ACT 112) guidelines. Electronically signed by Андрей Newman 05-13-2025 5:54 PM
--- NOTE | 2025-05-13 22:54 | History & Physical Report ---
Date of Service May 13, 2025 Assessment & Plan (1) High anion gap metabolic acidosis: (2) Acute alcoholic hepatitis: (3) Fall: (4) Alcohol intoxication: Plan Patient is a 59-year-old female with past medical history of hypertension, alcohol use, hepatitis, GERD, hypertension, depression and anxiety. Patient presented via EMS after she was found on her basement floor with a right eye bruise and bilateral arm bruises after drinking three fourths of a bottle of Smirnoff. Patient was found to be hypertensive in the ED, resolved at time of admission. She also was found to have significant bili elevated transaminases from her baseline as well as an alcohol level for 435.7. She was found to be in metabolic acidosis with an anion gap of 20. #high anion gap metabolic acidosis - anion gap 20, CO2 22, chloride 96, renal function stable. ETOH 435.7 on arrival. Acetaminophen and salicylate level negative. - osmolar gap calculated to be 23 on admission - VBG, lactate, serum osmol, urine osmol ordered - UDS and UA ordered - received 1L NSS bolus in ED, continue fluid resuscitation with LR @ 100 ml/hr x 2L - repeat CMP, VBG, and ETOH level with am labs #alcohol withdrawal - Unclear as to patient's baseline use as with AMS on admission. Stated she only drinks "here and there" but does endorse binge drinking on these occasions. Denies Hx of seizures. - no symptoms of withdrawal on admission as actively intoxicated - AWSS active protocol - seizure precautions - Thiamine IV 100mg and folic acid 1g IV QAM; thiamine 500 mg IV and folic acid 1g IV on admission - daily multivitamin - folate, B12, B1 levels ordered - reported has been in rehab 2 times for alcohol use - discharge plans uncertain at time of admission given patient actively intoxicated, mentioned considering rehab again - psychiatry consulted as per request #acute alcohol hepatitis - elevated transaminases on arrival - AST 226, ALT 124, Alk phos 170, t bili 0.5. INR 0.9. AP CT revealed fatty infiltration of liver, high attenuation area of liver could be due to focal sparing of fatty infiltrate versus liver mass (could be further evaluated by ultrasound or abdominal MRI with and without contrast), cholelithiasis and suspected mild gallbladder wall thickening. Patient denies any abd pain on admission. - further evaluate possible liver mass in outpatient setting Gallbladder ultrasound ordered - trend CMP #alcohol intoxication - ETOH 435.7 on arrival. Laboratories appear hemoconcentrated, elevated H&H. - IVF as above - trend ETOH level #Fall - 2/2 alcohol intoxication above. Diagnostic imaging negative for acute traumatic changes. Patient with ecchymosis to right eye. #HTN noted to be hypertensive on arrival, resolved at time of admission. No medical management at home VTE ppx: SCDs, low risk - if prolonged stay consider chemical ppx Dispo: PCU Admission and Anticipated Discharge Date Admission Date: 05/13/25 History of Present Illness Chief Complaint: alc intox Primary Care Provider: Ricky Marley III, ALEJANDRO Patient is a 59-year-old female with past medical history of hypertension, alcohol use, hepatitis, GERD, hypertension, depression and anxiety. Patient presented via EMS after she was found on her basement floor with a right eye bruise and bilateral arm bruises after drinking three fourths of a bottle of Warner. Patient was found to be hypertensive in the ED, resolved at time of admission. She also was found to have significant bili elevated transaminases from her baseline as well as an alcohol level for 435.7. She was found to be in metabolic acidosis with an anion gap of 20. Patient seen at bedside. She was still intoxicated however stated she is just currently in "mental pain". She denies any dizziness, lightheadedness, headaches, chest pain, shortness of breath, abdominal pain. She stated she typically does not drink every day she just goes through binge drinking episodes drinking every few days. She mostly recently went through what she felt like was withdrawal a week ago, she denies any previous seizures with withdrawal. Difficult to obtain history given current intoxication. Allergies Allergy/AdvReac Type Severity Reaction Status Date / Time No Known Allergies Allergy Verified 02/01/25 12:41 Home Medications Medication Instructions Recorded Confirmed Type No Known Home Medications 05/03/25 05/13/25 History Past Med/Surg History Problem List (Updated 05/13/25 @ 23:41 by Jolanta Alvarez PA-C) High anion gap metabolic acidosis Acute alcoholic hepatitis (Acute) Fall (Acute) Alcohol intoxication (Acute) Depression (Acute) Alcohol abuse (Acute) Alcohol intoxication (Acute) Iron deficiency Trigger finger Palmar fibromatosis Palmar nodule Hypertriglyceridemia (Chronic) Family history of colon cancer Vitamin B12 deficiency (Chronic) Laryngopharyngeal reflux (Chronic) Benign essential hypertension (Chronic) Depression with anxiety (Chronic) Anxiety state, unspecified (Acute) Allergic rhinitis (Acute) Alcohol abuse, episodic (Acute) Medical History History of melanoma GERD (gastroesophageal reflux disease) Hypertension Surgical History History of bilateral tubal ligation ~2014 History of dilatation and curettage x2 History of colonoscopy with polypectomy History of surgical procedure on mouth dental implant History of tooth extraction History of wisdom tooth extraction H/O Mohs micrographic surgery for skin cancer Family History Father Colon cancer Myocardial infarction Family history of reaction to anesthesia not able to void for hours after colostomy reversal Sister Family history of reaction to anesthesia "after having a she tried to get off the table" Denies family history of Ovarian cancer Prostate cancer Breast cancer Social History Smoking Status: Current every day smoker Tobacco Type: Cigarettes Age Started Using Tobacco: 17; Cigarettes Per Day: 5 a day; Second Hand Exposure: Yes (self); Do You Dip or Chew Tobacco: No; Hx Alcohol Use: Yes Alcohol type: beer and wine Alcohol Intake Frequency: Monthly or Less Hx Substance Use: No Preferred Language: Surinamese Communication Ability: Effective Visual Impairment: No Limitations Hearing Ability: Normal Prospect Manager Required: No Beliefs That Will Affect Care: None marital status: Current Living Situation: Family Current Living Situation Comment: Lives with daughter current occupational status: retired current occupation: teaching Feels Safe at Home: Yes Childhood Exposure to Second-Hand Smoke: Yes Diet: regular Dental Care, Regularly: Yes Physical Activity Frequency: Daily Seatbelt Use: always Sunscreen Use: Yes Assistive Devices: Contacts and Glasses Review of Systems Review of Systems: see HPI Physical Exam Physical Exam: The patient is awake, intoxicated, with ecchymosis surrounding right eye. HEENT- EOMI, mucous membranes dry. Hearing grossly intact. Heart-normal S1 and S2. No murmurs, rubs or gallops. Lungs-clear bilaterally, no respiratory distress, no accessory muscle use. Abdomen-normal bowel sounds and soft. No ascites noted. Non-tender. Extremities- no clubbing, cyanosis, or edema. Rheumatologic-normal range of motion. Results & Data Results & Data Vital Signs (Past 12 Hours) Vital Signs Temp Pulse Pulse Resp BP BP Pulse Ox 05/13/25 22:24 105 H 21 95 05/13/25 22:06 102 H 19 94 05/13/25 22:00 139/83 05/13/25 21:51 102 H 28 H 94 05/13/25 21:45 99 H 21 94 05/13/25 21:15 95 05/13/25 21:03 97 05/13/25 20:39 108 H 21 96 05/13/25 20:36 36.8 C 106 H 18 161/95 H 95 05/13/25 20:27 161/95 H 05/13/25 20:27 161/95 H 05/13/25 20:27 161/95 H 05/13/25 20:06 95 05/13/25 18:16 115 H 20 139/71 93 05/13/25 17:29 95 H 05/13/25 16:46 96 05/13/25 16:46 96 05/13/25 16:34 36.8 C 101 H 20 144/85 H 97 O2 Del Method 05/13/25 22:24 05/13/25 22:06 05/13/25 22:00 05/13/25 21:51 05/13/25 21:45 05/13/25 21:15 05/13/25 21:03 05/13/25 20:39 05/13/25 20:36 Room Air 05/13/25 20:27 05/13/25 20:27 05/13/25 20:27 05/13/25 20:06 05/13/25 18:16 Room Air 05/13/25 17:29 05/13/25 16:46 Room Air 05/13/25 16:46 Room Air 05/13/25 16:34 Room Air Laboratory Results Reviewed CBC, PT/INR, CMP, lipase, alcohol level, acetaminophen level, salicylate level, COVID swab Diagnostic Findings reviewed head CT, face CT, chest CT, cervical spine CT, abdomen pelvis CT Ordered gallbladder ultrasound Medications Administered ED1L NSS bolus ECG Additional Comments: ordered Code Status & VTE Plan Code Status unable to obtain given actively intoxicated at time of admission Will make full code VTE Prophylaxis Plan VTE Prophylaxis will be ordered: Yes Supervising Physician Co-Signing Physician Notes Attending addendum: I have physically seen this patient, have supervised the AP's activities, and agree with the H&P unless as otherwise noted. Assessment and Plan: The patient is a 59-year-old female with past medical history including hypertension, alcohol abuse, hepatitis, GERD, hypertension, depression and anxiety. She presents to the emergency department via EMS after she was found on her basement floor with a right eye bruise and bilateral arm bruises, after drinking 3/4 of a bottle of Smirnoff. Her alcohol level was 435.7, and liver tests were abnormal. and has an AG of 20. Alcohol intoxication/alcohol withdrawal/alcohol abuse- Alcohol level 435.7 Placed on AWSS protocol with IVF Thiamine 100 mg IV daily Folic acid 1 mg IV daily Status post 1 L normal saline bolus from the ED Continue hydration LR at 100 mL/h x 2 L Alcoholic hepatitis- AST 226, ALT 124, Alkaline phosphatase 170 Follow-up laboratory serially IV fluids as noted Not a candidate for steroids at this time Needs alcohol cessation CT scan notes fatty liver and mild gallbladder wall thickening Ultrasound ordered for further clarification of GB status High anion gap metabolic acidosis- AG 20. alcohol level 435.7 Serum osmolality 409 Treatment is aggressive fluid rehydration Repeat laboratories in a.m. PG Care Time/CCT Total # of Minutes Spent Total Time Spent with Patient: Total time spent is greater than 50% in coordination of care (as documented) at patient's floor/unit and/or counseling patient: Coding Level of Care Code 57864 INT INP/OBS CARE 3/75MIN Diagnoses High anion gap metabolic acidosis E87.29 Acute alcoholic hepatitis K70.10 Fall W19.XXXA Alcohol intoxication F10.929
[2025-05-13] MEDS: SODIUM CHLORIDE 0.9% 1,000 ML IV ONE (23:02)
[2025-05-13 23:41] LABS: Folate (Folic Acid),Ser orPlas 15.57 ng/ml (>5.38)
[2025-05-13 23:42] LABS: Vitamin B12 409.0 pg/ml (180-914)
[2025-05-14 00:31] LABS: Base Excess VBG -2.4 mEq/L; HCO3 VBG 22 mmol/L; Oxygen Saturation VBG 87.1 %; PCO2 VBG 34 mmHg (38-50); PO2 VBG 56 mmHg; pH VBG 7.41 (7.36-7.41)
[2025-05-14 01:22] LABS: Appearance Urine Clear (Clear); Bacteria Urine Automated 3+ (None Seen); Cast Urine Automated 0-2 /lpf (0-2); Glucose Urine UA 3+ (Negative); RBC Urine Automated 0-2 /hpf (0-2)
[2025-05-14 01:32] LABS: Amphetamines+Metham, Urine Neg (Neg); MDMA (Ecstacy), Urine Neg (Neg); Marijuana, Urine Neg (Neg)
[2025-05-14] MEDS: LACTATED RINGER'S 1,000 ML IV SCH (01:55)
[2025-05-14] MEDS ORDERED: DOCUSATE SODIUM 100 MG CAP PO PRN (02:04)
[2025-05-14] MEDS ORDERED: MELATONIN 3 MG TAB PO PRN (02:04)
[2025-05-14] MEDS: THIAMINE HCL 500 MG in SODIUM CHLORIDE 0.9% 50 ML IV ONE (03:23)
[2025-05-14] MEDS: FOLIC ACID 1 MG in SYRINGE 9.8 ML IV STA (03:23)
[2025-05-14 05:56] LABS: Base Excess VBG 6.6 mEq/L; HCO3 VBG 29 mmol/L; Oxygen Saturation VBG 86.2 %; PCO2 VBG 34 mmHg (38-50); PO2 VBG 51 mmHg; pH VBG 7.54 (7.36-7.41)
[2025-05-14 06:08] LABS: Hematocrit (blood only) 32.0 % (37.0-47.0); Hemoglobin 11.9 g/dl (12.0-16.0); Mean Corpuscular Hemoglobin 32.7 pg (25.0-34.0); Mean Corpuscular Volume 87.9 fL (80.0-100.0); Platelet Count 82 K/uL (130-400); RDW Standard Deviation 38.2 fL (36.4-46.3); Red Blood Count 3.64 M/uL (4.20-5.40); White Blood Count 8.83 K/ul (4.8-10.8)
[2025-05-14 06:26] LABS: Immature Granulocytes # (auto) 0.04 K/uL (0.01-0.20); Immature Granulocytes % (auto) 0.5 %
[2025-05-14 06:30] LABS: Alanine Aminotransferase 74.0 U/L (7-52); Albumin Globulin Ratio 1.4 (0.9-2); Albumin Level 3.3 gm/dl (3.4-5.0); Alkaline Phosphatase 107.0 U/L (34-104); Anion Gap 11.0 (3-11); Bilirubin,Total 0.8 mg/dl (0.2-1.0); Blood Urea Nitrogen 13.0 mg/dl (6-23); Calcium 7.7 mg/dl (8.6-10.3); Carbon Dioxide 26.0 mmol/L (21-32); Chloride 93.0 mmol/L (98-107); Creatinine Clr Calc Pharmacy 155.1 ml/min; Globulin 2.3 gm/dl (2.5-4.0); Glucose 83.0 mg/dl (70-99(Fasting)); Magnesium 1.7 mg/dl (1.7-2.4); Potassium 3.8 mmol/L (3.5-5.1); Sodium 130.0 mmol/L (136-145); Total Protein 5.6 gm/dl (6.0-8.3)
--- NOTE | 2025-05-14 06:45 | Ultrasound Report ---
EXAM: US gallbladder CLINICAL HISTORY: Wall thickening on CT, cholelithiasis TECHNIQUE: Limited ultrasound of the liver and gallbladder was performed in greyscale and Doppler. Multiple images were obtained in transverse and longitudinal planes. COMPARISON: None. FINDINGS: Liver: Liver size: 19.12 cm. Liver appears enlarged in size with coarse parenchymal echogenicity. No evidence of focal lesions, cysts, or masses. Hepatic vasculature appears normal. Gallbladder: Gallbladder size: Gallbladder is visualized and appears normal in size and shape, not distended Multiple echogenic foci are identified, some appears intraluminal and some along the alford of the gallbladder with some of them having possible comet tail artifact Wall of the gallbladder appears thickened and irregular, heterogeneous and hypoechoic and measures 0.40 cm. Negative Elena sign Biliary Tree: Common bile duct diameter: Common bile duct is borderline dilated and measures 0.70 cm. No evidence of choledocholithiasis or biliary obstruction. Pancreas: Echotexture: Normal/homogeneous No focal lesions or masses were identified. Pancreatic duct: Normal size, no dilatation Right Kidney: Right kidney size: 10.68 x 4.79 x 4.48 cm. Right kidney appears normal in size with preserved corticomedullary differentiation. No evidence of hydronephrosis, renal cysts, or masses. IMPRESSION: 1. Multiple echogenic foci in the gallbladder, some of them appears intraluminal and some along the anterior wall of gallbladder. These may be sludge balls along with possibility of cholesterol polyps/ however possiblity of calculi cannot be excluded 2. Thick-walled and irregular gallbladder wall which appears heterogeneous and hypoechoic, Elena sign is negative and gall bladder is not overdistended. Findings may be due to adenomyomatosis; however if there is suspicion of acute inflammation, clinical correlation and follow-up is advised. 3. Borderline dilated common bile duct. 4. Hepatomegaly with parenchymatous liver disease. 5. No features of acute pancreatitis. Electronically signed by Dannie Adorno 05-14-2025 06:45 AM
[2025-05-14] MEDS: ONDANSETRON INJ 2 MG/ML 2 ML VIAL IV PRN (07:07)
[2025-05-14] MEDS: FOLIC ACID 1 MG in SYRINGE 9.8 ML IV SCH (09:24)
[2025-05-14] MEDS: THIAMINE HCL 100 MG in SYRINGE 9 ML IV SCH (09:24)
[2025-05-14] MEDS: MULTIVITAMIN TAB PO SCH (09:24)
--- NOTE | 2025-05-14 11:24 | Psychiatric Consultation ---
Date of Consultation May 14, 2025 Impression / Recommendations Impression Diagnostically consistent with alcohol use disorder as well as unspecified depression and anxiety likely a combination of substance-induced as well as JOHN. Acute risk of self-harm is low given denial of SI and no longer with intoxication. Chronic risk of self-harm and harm to others is slightly increased due to substance use with substance use treatment being the most significant modifiable risk factor to reduce acute and chronic risk. They are not interested in residential treatment at this time but are agreeable to outpatient services to help with substance use and medication assisted treatment. Liver enzymes reviewed and stable for treatment with naltrexone and no concurrent opioids. Given low sodium would hold off on starting SSRI at this time. In the future, once sodium improves and if depression or anxiety re-occurs then consider starting escitalopram. Overall, I spent a total of 60 minutes with this case including review of chart records, review of labwork, review of EKG QTc, direct evaluation of the patient at bedside, counseling the patient, discussion of the patient with the Nurse and with the hospitalist provider, discussion with the psychiatric liason during clinical rounds and documentation in the electronic health record. (1) Alcohol use disorder, moderate, dependence: (2) Anxiety: Plan -Psychiatric liason provided resources on local mental health services and substance use services (she is interested in [facility] dual diagnosis [facility]) -Patient is not an imminent danger to self or others and does not meet criteria for involuntary psychiatric commitment -Consider starting naltrexone 50mg qd for alcohol use disorder -If sodium improves in the future consider starting escitalopram 10mg daily if depression or anxiety symptoms re-occur -Encouraged involvement with AA, her muslim and discussed other ways to increase protective factors and supports to help with her avoidance of future alcohol use -Reviewed to return to hospital or call 911 if she ever feels unsafe or if symptoms worsen or do not improve Psych History Identifying Data 59 yo woman with a history of hypertension, alcohol use, hepatitis, GERD, hypertension, depression and anxiety. psychiatry consulted for recommendations for alcohol use, anxiety, depression. Chief Complaint "Now I don't". History of Present Illness Kay was admitted following fall while intoxicated. She reports periods of binge drinking in recent years since her divorce. She had gone ~ 1 month without drinking any alcohol until recent days (timeline unclear) in which she started to drink ~12 beers over a few hours after being excluded from a family gathering and feeling acutely lonely. She denies depression today stating "now I don't" due to no longer being intoxicated. Agrees she feels more depressed when consuming alcohol. Deals with anxiety at times. Denies SI. Willing for outpatient services, not interested in inpatient psych nor residential substance use tx. History of residential substance use in 2105 and 2017. Has particpiated in AA and [facility]. Has a therapist via [employer] but she is out on maternity leave currently. She may start therapy through her muslim agency cashier. No hx of inpt psych. No prior suicide attempts. No access to lethal means. History of Wellbutrin trial-not much benefit. Daughter responded well to lexapro. No prior MAT trials. Allergies Allergy/AdvReac Type Severity Reaction Status Date / Time No Known Allergies Allergy Verified 02/01/25 12:41 Home Medications Medication Instructions Recorded Confirmed Type No Known Home Medications 05/03/25 05/13/25 History Patient History Medical History History of melanoma GERD (gastroesophageal reflux disease) Hypertension Surgical History History of bilateral tubal ligation ~2014 History of dilatation and curettage x2 History of colonoscopy with polypectomy History of surgical procedure on mouth dental implant History of tooth extraction History of wisdom tooth extraction H/O Mohs micrographic surgery for skin cancer Family History Father Colon cancer Myocardial infarction Family history of reaction to anesthesia not able to void for hours after colostomy reversal Sister Family history of reaction to anesthesia "after having a she tried to get off the table" Denies family history of Ovarian cancer Prostate cancer Breast cancer Social History Smoking Status: Current every day smoker Tobacco Type: Cigarettes Age Started Using Tobacco: 17; Cigarettes Per Day: 5 a day; Second Hand Exposure: Yes (self); Do You Dip or Chew Tobacco: No; Hx Alcohol Use: Yes Alcohol type: beer and wine Alcohol Intake Frequency: Monthly or Less Hx Substance Use: No Preferred Language: Faroese Communication Ability: Effective Visual Impairment: No Limitations Hearing Ability: Normal Railroad Police Officer Required: No Beliefs That Will Affect Care: None marital status: Current Living Situation: Family Current Living Situation Comment: Lives with daughter current occupational status: retired current occupation: teaching Feels Safe at Home: Yes Childhood Exposure to Second-Hand Smoke: Yes Diet: regular Dental Care, Regularly: Yes Physical Activity Frequency: Daily Seatbelt Use: always Sunscreen Use: Yes Assistive Devices: Contacts and Glasses Physical Exam Psychiatric: Orientation: alert and oriented x 3 Apperance: appropriately dressed and appropriately groomed Eye Contact: good eye contact Motor Behavior: no abnormal motor movements Speech: normal rate/rhythm/volume of speech Affect: + constricted affect (but smiles at times) Mood: no depressed mood and no anxious mood Thought Process: linear/logical thought process Thought Content: reality based without delusions Suicidal Thoughts: denies suicidal thoughts Homicidal Thoughts: denies homicidal thoughts Hallucinations: no auditory hallucinations and no visual hallucinations Cognition: recent memory grossly intact, remote memory grossly intact, attention grossly intact and language grossly intact Estimated Intelligence: consistent with education level Insight: + fair insight Judgment: + limited judgement Vital Signs (Past 24 Hours): Last Vital Signs Temp 36.8 C 05/13/25 20:36 Pulse 108 H 05/14/25 09:51 Resp 21 05/14/25 09:51 BP 156/83 H 05/14/25 09:55 Pulse Ox 97 05/14/25 09:51 O2 Del Method Room Air 05/14/25 09:32 Results & Data (PSY) Medications Administered Lactated Ringer's (Lr) 1,000 mls @ 100 mls/hr IV .Q10H MARTY Stop: 05/14/25 19:44 Last Admin: 05/14/25 09:24 Dose: 100 mls/hr Documented By: Infusion: 05/14/25 09:24 Dose: Infused Documented By: Admin: 05/14/25 01:55 Dose: 100 mls/hr Documented By: KAILEE Thiamine HCl 100 mg/ Syringe 10 mls @ 2 mls/min IV QAM MARTY Stop: 06/13/25 08:59 Last Admin: 05/14/25 09:24 Dose: 2 mls/min Documented By: SUAD Folic Acid 1 mg/ Syringe 10 mls @ 5 mls/min IV QAM MARTY Stop: 06/13/25 08:59 Last Admin: 05/14/25 09:24 Dose: 5 mls/min Documented By: SUAD Lorazepam (Lorazepam 2 Mg/1 Ml Vial) 1 mg IV UD PRN; Protocol PRN Reason: EtOH Withdrawal AWSS Score 6,7 Stop: 06/13/25 02:03 Last Admin: 05/14/25 07:13 Dose: 1 mg Documented By: Admin: 05/14/25 03:57 Dose: 1 mg Documented By: KAILEE Multivitamins (Multivitamin Tab) 1 tab PO QAM [facility] Stop: 06/13/25 08:59 Last Admin: 05/14/25 09:24 Dose: 1 tab Documented By: SUAD Ondansetron HCl (Ondansetron Inj 2 Mg/Ml 2 Ml Vial) 4 mg IV Q6H PRN PRN Reason: Nausea And Vomiting Stop: 06/13/25 02:03 Last Admin: 05/14/25 07:07 Dose: 4 mg Documented By: KITA Coding Level of Care Code 87191 IN/OBS CONSULT LVL 4,60M Diagnoses Alcohol use disorder, moderate, dependence F10.20 Anxiety F41.9
[2025-05-14 13:56] VITALS: O2SAT 96
[2025-05-14 14:06] VITALS: RESP 23
--- NOTE | 2025-05-14 14:13 | Discharge Summary ---
Discharge Summary Date of Service May 14, 2025 Principal Dx & Hospital Course #1 = Principal Diagnosis (1) High anion gap metabolic acidosis: (2) Acute alcoholic hepatitis: (3) Fall: (4) Alcohol intoxication: Plan Patient is a 59-year-old female with past medical history of hypertension, alcohol use, hepatitis, GERD, hypertension, depression and anxiety. Patient presented via EMS after she was found on her basement floor with a right eye bruise and bilateral arm bruises after drinking three fourths of a bottle of [place]. Patient was found to be hypertensive in the ED, resolved at time of admission. She also was found to have significant bili elevated transaminases from her baseline as well as an alcohol level for 435.7. She was found to be in metabolic acidosis with an anion gap of 20. She stated that she was about 10 yrs ago. At that time, she did counseling together with her then 14 yr old daughter (she is now in grad school in [employer] [place] for physical therapy). She was a "social" drinker prior to divorce. Since the divorce her drinking has gotten worse. This yr itself, she had 5 episodes of binge drinking. She used to be close with her older sister but over the past 5 yrs, they have been drifting apart and this has not helped addiction. She used to go to counseling, but between her counselor getting and pt going to [place], the continuity fell apart. This past week, pt had another cold interaction with her sister. They were at [place] and her sister and nephews all were together but they didn't include pt. She felt isolated. So, on Friday she had a 12-pack beer. Nothing Friday. also she had a 12 pack beer (used to drink hard liquor but can't handle that- per H&P she had 3/4 bottle of Smirnoff). Prior to this past Friday, she was sober for 4 weeks. She states that she is drinking due to depression and loneliness. She has done alcohol rehab in 2016 and 2018. Pt requested psychiatry evaluation for anxiety / depression. #high anion gap metabolic acidosis - resolved - anion gap 20, CO2 22, chloride 96, renal function stable. ETOH 435.7 on arrival. Acetaminophen and salicylate level negative. - osmolar gap calculated to be 23 on admission - VBG, lactate, serum osmol, urine osmol ordered - UDS and UA ordered - received 1L NSS bolus in ED, continue fluid resuscitation with LR @ 100 ml/hr x 2L - repeat CMP, VBG, and ETOH level with am labs #alcohol withdrawal - pt stated that she drank a 12 pack beer on Friday, skipped Friday and had alcohol again on leading to the fall which leonardo her here - she denied seizures or prior withdrawal history to wv - alcohol level now undetectable, pt remains without any withdrawal symptoms - pt was evaluated by psychiatry, recs starting naltrexone 50mg po daily without outpatient follow up for dual diagnosis management. Pt is cleared by psych to be discharged #acute alcohol hepatitis - resolving - elevated transaminases on arrival - AST 226, ALT 124, Alk phos 170, t bili 0.5. INR 0.9. AP CT revealed fatty infiltration of liver, high attenuation area of liver could be due to focal sparing of fatty infiltrate versus liver mass (could be further evaluated by ultrasound or abdominal MRI with and without contrast), cholelithiasis and suspected mild gallbladder wall thickening. Patient denies any abd pain on admission. - further evaluate possible liver mass in outpatient setting Gallbladder ultrasound, without any acute events. Pt will need outpatient follow up for further evaluation #alcohol intoxication - ETOH 435.7 on arrival. Laboratories appear hemoconcentrated, elevated H&H. - IVF as above - EtOH < 10 #Hyponatremia - mild - rpt as outpatient #Fall - 2/2 alcohol intoxication above. Diagnostic imaging negative for acute traumatic changes. Patient with ecchymosis to right eye. #HTN noted to be hypertensive on arrival, resolved at time of admission. - pt will need home BP monitoring and if remains abnormal,institute BP meds via PCP #Anxiety - pt to be initiated on Escitalopram 10mg po daily. However, in the setting of hyponatremia, psychiatry would like to hold off until rpt labs as outpatient. - pt aware all labs will need to be checked by PCP. Admission HPI Per Admitting Provider Patient is a 59-year-old female with past medical history of hypertension, alcohol use, hepatitis, GERD, hypertension, depression and anxiety. Patient presented via EMS after she was found on her basement floor with a right eye bruise and bilateral arm bruises after drinking three fourths of a bottle of [place]. Patient was found to be hypertensive in the ED, resolved at time of admission. She also was found to have significant bili elevated transaminases from her baseline as well as an alcohol level for 435.7. She was found to be in metabolic acidosis with an anion gap of 20. Patient seen at bedside. She was still intoxicated however stated she is just currently in "mental pain". She denies any dizziness, lightheadedness, headaches, chest pain, shortness of breath, abdominal pain. She stated she typically does not drink every day she just goes through binge drinking episodes drinking every few days. She mostly recently went through what she felt like was withdrawal a week ago, she denies any previous seizures with withdrawal. Difficult to obtain history given current intoxication. Discharge Exam Gen: no acute distress, lying in bed comfortable HEENT: NC, right eye ecchymosis, MMM Lungs: nonlabored breathing, CTAB CVS: s1s2nl, RRR Abd: nl bowel sounds, soft, NT / ND : no lucia Ext: no edema Neuro: AAOx3 Psych: anxious, cooperative Discharge Plan Discharge Items Patient Disposition: Home - Self-Care Reason For Visit: METABOLIC ACIDOSIS, ALC WITHDRAWL Discharge Diagnosis: Alcohol intoxication, metabolic acidosis (resolved) Condition on Discharge: Fair Activity: Resume your previous activity Non-emergency contact: Primary Care Provider and Psychiatrist Call non-emergency contact if: you have any medication questions and your symptoms worsen Follow-up/Referrals: [facility] [Other] (Visit and complete intake/referral form at [email or web address]; follow prompts to request services for virtual intensive outpatient program. You may call the contact for further issues or questions! ) [facility] [Provider Group] (for further evaluation of the liver and gallbladder abnormalities) Can Help [Outside] ([facility] is available for further assistance and help with outpatient resources. Do not hesitate to return to emergency room if symptoms worsen or feeling unsafe with depression or suicidal thoughts. ) Ricky Marley III, CRNP [Primary Care Provider] - Diet: Regular Addtl Attending Provider Instructions: You were admitted for alcohol intoxication and complications of alcohol intoxication. You were noted to have abnormal liver function test and this is improving with fluids. It is still abnormal and needs to be repeated in about 7 to 10 days by your primary care doctor. You had gallbladder ultrasound done which shows galls bladder sludge and stones. If you develop severe right upper abdomen pain, return to the hospital. You also had acid imbalance in your blood and this has resolved. You were also have low platelets likely from alcohol suppressing bone marrow. You were evaluated by psychiatry and recommended starting Naltrexone. You also need to be on Escitalopram, however, your sodium level is slightly low. Please have this checked as outpatient and once it is normal, outpatient psychiatrist will start you Escitalopram. You were also noted to have slightly elevated blood pressure without any other symptoms. This could be related anxiety and also being in the hospital. Please get a blood pressure for your home and monitor your blood pressure. If your pressure is remaining elevated, please call your primary care doctor for further evaluation. If you are having any additional symptoms (chest pain, palpitations, dizziness, worsening headaches, shortness of breath, etc) return to the hospital. Please follow up as outpatient with psychiatry as well as primary care doctor in about 7 to 10 days. Have all labs be ordered by your PCP. Pending Studies at Discharge: Yes Studies:: Vitamin B1 levels Stand-Alone Forms: [employer], Smoking Cessation Medications and DC Order Prescriptions: New naltrexone 50 mg tablet 50 mg PO DAILY Qty: 30 0RF No Action No Known Home Medications Discharge Orders: Discharge Order (Routine); Ordered 05/14/25 Ordered By: Adia Estrada Admission Data Admit Date/Time: 05/13/25 23:06 Attending Provider: Adia Estrada Admit Provider: Robin Pittman Primary Care Provider: Ricky Marley III Other Providers: Robin Pittman; Janet Leone; Sinan James; Regina Vinson; Kathie Butt; Dhiraj Smith; Jolene Valencia; Qasim Otoole; Lolis Correa Hospital Stay Data Consultations 05/13/25 22:31 ED Decision to Admit Stat 05/14/25 02:04 Consult Psychiatry Routine Diagnostic Imagining Performed 05/13/25 16:38 CT abd pelvis wo con Stat CT cervical spine wo con Stat CT chest diagnostic wo con Stat CT facial bones wo con Stat CT head/brain wo con Stat 05/14/25 12:00 US gallbladder Stat Pending Results Patient Have Any Pending Studies at Discharge: Yes Discharge Instructions Given to Patient (Per Discharging Provider) You were admitted for alcohol intoxication and complications of alcohol intoxication. You were noted to have abnormal liver function test and this is improving with fluids. It is still abnormal and needs to be repeated in about 7 to 10 days by your primary care doctor. You had gallbladder ultrasound done which shows galls bladder sludge and stones. If you develop severe right upper abdomen pain, return to the hospital. You also had acid imbalance in your blood and this has resolved. You were also have low platelets likely from alcohol suppressing bone marrow. You were evaluated by psychiatry and recommended starting Naltrexone. You also need to be on Escitalopram, however, your sodium level is slightly low. Please have this checked as outpatient and once it is normal, outpatient psychiatrist will start you Escitalopram. You were also noted to have slightly elevated blood pressure without any other symptoms. This could be related anxiety and also being in the hospital. Please get a blood pressure for your home and monitor your blood pressure. If your pressure is remaining elevated, please call your primary care doctor for further evaluation. If you are having any additional symptoms (chest pain, palpitations, dizziness, worsening headaches, shortness of breath, etc) return to the hospital. Please follow up as outpatient with psychiatry as well as primary care doctor in about 7 to 10 days. Have all labs be ordered by your PCP. Total Time Total Time Spent Total Time Spent (In Minutes): 90 Coding Level of Care Code 67626 INP/OBS DISCH >30 MIN Diagnoses High anion gap metabolic acidosis E87.29 Acute alcoholic hepatitis K70.10 Fall W19.XXXA Alcohol intoxication F10.929
[2025-05-14 15:48] VITALS: BP 162/97; PULSE 97
--- NOTE | 2025-05-15 12:07 | Electrocardiogram Report ---
Test Reason : Blood Pressure : */* mmHG Vent. Rate : 94 BPM Atrial Rate : 94 BPM P-R Int : 132 ms QRS Dur : 74 ms QT Int : 366 ms P-R-T Axes : 21 -39 45 degrees QTcB Int : 457 ms Normal sinus rhythm Left axis deviation Confirmed by Manjit Flores ([id number]) on 05/15/2025 12:07:05 PM Referred By: REFERRED SELF Confirmed By: Manjit Flores
== END 2025-05-14 15:45 | disposition home or self-care (01) | DRG 897 ==
LOC: SUATTDRO → ED 16:24 → OBSVTOIN 23:06 → EDINP 23:06 → SUATTDRO 23:06 → INTOOBSV 23:06 → EDINP 05-14 02:05